=== PATIENT | male | born 1960 | race Caucasian/White ===

== ENCOUNTER 2017-03-27 17:24 | Observation (INO) ==
[2017-03-27] MEDS ORDERED: 0.9 % Sodium Chloride 1,000 ML IVC ONE ×2 (19:24→20:39)
--- NOTE | 2017-03-27 19:28 | Emergency Department Note ---
Disposition Clinical Impression: HHNC (hyperglycemic hyperosmolar nonketotic coma) Disposition: Admitted As Inpatient Condition: Good Referrals: Emily Amaro MD [Primary Care Provider] - Forms: ED Satisfaction Letter Time of Disposition: 20:49 General Adult HPI - General Chief complaint: ED Dizziness Stated complaint: High B/G, blurred vision,bad taste in mouth Time Seen by Provider: 03/27/17 19:07 Source: patient, family Limitations: no limitations Nursing Notes Reviewed: Yes Vital Signs Reviewed: Yes - History of Present Illness HPI Narrative: History of present illness: 56-year-old male presents with his significant other for blurry vision headache and hot taste in mouth. Patient recently diagnosed with diabetes [id number] this a few months ago. States she has been thirsty with polyuria and polydipsia. Says he has blurry vision. That is binocular. He has mild headache but no photophobia or neck stiffness. No fever or chills. No nausea or vomiting. No diarrhea. No chest pain or shortness of breath. Patient is noncompliant with some of his medications. Patient is awake and alert with trial mucosa here for further evaluation but in no apparent distress Pain Scale: 0 - Related Data Home Medications Medication Instructions Recorded Confirmed Aspirin [Adult Low Dose Aspirin EC] 81 mg PO DAILY 09/30/15 03/27/17 Cholecalciferol (D-3) [Vitamin D] 4,000 unit PO DAILY 09/30/15 03/27/17 Lisinopril-HCTZ 20-12.5 [Prinzide 1 each PO DAILY 09/30/15 03/27/17 20-12.5] Loratadine [Claritin] 10 mg PO DAILY 09/30/15 03/27/17 Albuterol Sulfate [Albuterol 2 puff IH Q4H PRN 06/26/16 03/27/17 Inhaler] Budesonide/Formoterol 160/4.5 2 puff IH BIDR 03/27/17 03/27/17 [Symbicort 160/4.5] Cyclobenzaprine [Flexeril] 10 mg PO HS 03/27/17 03/27/17 Furosemide [Lasix] 20 mg PO DAILY 03/27/17 03/27/17 GlipiZIDE [Glipizide Xl] 5 mg PO DAILY 03/27/17 03/27/17 Pravastatin Sodium [Pravachol] 20 mg PO HS 03/27/17 03/27/17 Allergies Allergy/AdvReac Type Severity Reaction Status Date / Time ceftriaxone [From Rocephin] AdvReac Severe See Verified 03/27/17 17:30 Comments All systems ED: reviewed and negative except as stated. Gastrointestinal: Reports: nausea Neurological: Reports: headache Endocrine: Reports: fatigue, polydipsia, polyuria Past Medical History - Past Medical History Attestation: Yes The following information was validated with the patient. Source: patient Medical history: Reports: CHF, COPD, coronary artery disease, diabetes, hypertension, myocardial infarction, renal disease Surgical history: Reports: appendectomy, herniorrhaphy Psychiatric history: Reports: no psych history - Social History Smoking Status: Former smoker Smokeless Tobacco Status: No Alcohol use: Reports: none Drug use: Reports: none Physical Exam - General Limitations: no limitations General appearance: alert, in no apparent distress - Head Head exam: atraumatic, normocephalic - Eye Eye exam: Present: normal appearance, PERRL, EOMI - ENT ENT exam: normal oropharynx, mucous membranes dry - Neck Neck exam: Present: normal inspection, full ROM - Chest Chest inspection: Present: normal inspection, symmetric chest wall rise - Respiratory Respiratory exam: Present: normal lung sounds bilaterally - Cardiovascular Cardiovascular exam: Present: regular rate, normal rhythm - Abdominal Exam Abdominal exam: Present: soft, Non-Tender - Extremities Exam Extremities exam: Present: normal inspection, pedal edema - Expanded Lower Extremity Exam Neurovascular/Tendon exam: Present: normal capillary refill Gait: observed and normal - Back Exam Back exam: Present: normal inspection - Neurological Exam Neurological exam: Present: alert, oriented X3, CN II-XII intact - Psychiatric Psychiatric exam: Present: normal affect, normal mood - Skin Skin exam: Present: warm, dry, intact Course - Reevaluation(s) Reevaluation #1: Patient will be worked up for hyperglycemia and DKA. Will be given 1 L normal saline troponin screening labs and an EKG with urinalysis. Disposition pending. Time: 19:28 Reevaluation #2: Patient's ED workup is nearing completion. Critical elevated glucose at over 750. Elevations and beta hydroxybutyrate. However no increased anion gap. In his VBG was borderline normal. Patient has hyperglycemic nonketotic state. With dehydration. Patient will be getting 2 L normal saline bolus. We will replace for admission awaiting hospitalist call back. Patient and family members so informed. Patient comfortable with this plan. Provided 40 minutes of critical care services for this patient. Time: 20:48 Reevaluation #3: Discussed the case with the hospitalist Dr. CARUSO, patient accepted for admission in stable condition Time: 20:59 Vital Signs Temperature 97.7 F 03/27/17 17:26 Pulse Rate 84 03/27/17 17:26 Respiratory Rate 18 03/27/17 17:26 Blood Pressure 124/78 03/27/17 17:26 O2 Sat by Pulse Oximetry 93 03/27/17 17:26 Temperature 97.7 F 03/27/17 17:26 Pulse Rate 84 03/27/17 17:26 Respiratory Rate 18 03/27/17 17:26 Blood Pressure 124/78 03/27/17 17:26 O2 Sat by Pulse Oximetry 93 03/27/17 17:26 Oxygen Delivery Oxygen Delivery Room Air Medical Decision Making - Medical Records Medical records reviewed: Yes I reviewed the patient's medical records. - Lab Data Lab results reviewed: Yes I reviewed the patient's lab results. Result diagrams: 03/27/17 19:58 03/27/17 19:58 Lab Results 03/27/17 03/27/17 03/27/17 Range/Units 17:28 19:58 19:58 WBC 8.2 (4.3-11.1) K/mcL RBC 4.92 (4.19-5.50) M/mcL Hgb 15.3 (12.9-16.9) g/dL Hct 45.7 (37.5-50.1) % MCV 92.9 (83.0-100.0) fL MCH 31.1 (28.0-33.3) pg MCHC 33.5 (31.6-35.5) g/dL RDW 13.3 (11.5-14.5) % Plt Count 136 L (140-400) K/mcL MPV 12.6 H (9.4-12.4) fL Immature Gran % 0.5 (0-4) % Seg Neutrophils % 61.1 % Lymphocytes % 29.2 % Monocytes % 8.1 % Eosinophils % 0.5 % Basophils % 0.6 % Neutrophils # 5.0 (1.6-8.9) K/mcL Lymphocytes # 2.4 (0.6-4.6) K/mcL Monocytes # 0.7 (0.0-1.3) K/mcL Eosinophils # 0.0 (0.0-0.6) K/mcL Basophils # 0.1 (0.0-0.2) K/mcL VBG pH (7.32-7.42) pH Units VBG pCO2 (41-51) mmHg VBG pO2 (25-40) mmHg VBG HCO3 (21-27) mEq/L Sodium 123 L (136-145) mEq/L Potassium 5.3 H (3.5-4.5) mEq/L Chloride 87 L (98-109) mEq/L Carbon Dioxide 27 (19-29) mEq/L BUN 31 H (8-26) mg/dL Creatinine 1.81 H (0.72-1.25) mg/dL Est GFR ( Amer) 47 L (> 60) Est GFR (Non-Af Amer) 39 L (> 60) BUN/Creatinine Ratio 17 (6-26) Glucose 762 H* (70-99) mg/dL POC Glucose > 600 H* (58-89) Calculated Osmolality 299 (280-300) Calcium 8.6 (8.6-10.8) mg/dL Troponin I (0-0.03) ng/mL Beta-Hydroxybutyric Acd 0.44 H (0.02-0.27) mmol/L 03/27/17 03/27/17 Range/Units 19:58 19:58 WBC (4.3-11.1) K/mcL RBC (4.19-5.50) M/mcL Hgb (12.9-16.9) g/dL Hct (37.5-50.1) % MCV (83.0-100.0) fL MCH (28.0-33.3) pg MCHC (31.6-35.5) g/dL RDW (11.5-14.5) % Plt Count (140-400) K/mcL MPV (9.4-12.4) fL Immature Gran % (0-4) % Seg Neutrophils % % Lymphocytes % % Monocytes % % Eosinophils % % Basophils % % Neutrophils # (1.6-8.9) K/mcL Lymphocytes # (0.6-4.6) K/mcL Monocytes # (0.0-1.3) K/mcL Eosinophils # (0.0-0.6) K/mcL Basophils # (0.0-0.2) K/mcL VBG pH 7.31 L (7.32-7.42) pH Units VBG pCO2 57 H (41-51) mmHg VBG pO2 39 (25-40) mmHg VBG HCO3 28.7 H (21-27) mEq/L Sodium (136-145) mEq/L Potassium (3.5-4.5) mEq/L Chloride (98-109) mEq/L Carbon Dioxide (19-29) mEq/L BUN (8-26) mg/dL Creatinine (0.72-1.25) mg/dL Est GFR ( Amer) (> 60) Est GFR (Non-Af Amer) (> 60) BUN/Creatinine Ratio (6-26) Glucose (70-99) mg/dL POC Glucose (58-89) Calculated Osmolality (280-300) Calcium (8.6-10.8) mg/dL Troponin I 0.01 (0-0.03) ng/mL Beta-Hydroxybutyric Acd (0.02-0.27) mmol/L - Radiology Data Radiology results reviewed: Yes I reviewed the patient's radiology results. - EKG Data EKG #1 EKG attestation: Yes I reviewed and interpreted this EKG. EKG results narrative: Twelve-lead EKG interpreted without cardiology shows:
[2017-03-27 20:20] LABS: VBG HCO3 28.7 mEq/L (21-27); VBG PH 7.31 pH Units (7.32-7.42)
[2017-03-27 20:24] LABS: Basophils # 0.1 K/mcL (0.0-0.2); Basophils % 0.6 %; Eosinophils % 0.5 %; Hematocrit 45.7 % (37.5-50.1); Hemoglobin 15.3 g/dL (12.9-16.9); Immature Granulocytes % 0.5 % (0-4); Lymphocytes # 2.4 K/mcL (0.6-4.6); Lymphocytes % 29.2 %; Mean Corpuscular HGB Conc 33.5 g/dL (31.6-35.5); Mean Corpuscular Hemoglobin 31.1 pg (28.0-33.3); Mean Corpuscular Volume 92.9 fL (83.0-100.0); Mean Platelet Volume 12.6 fL (9.4-12.4); Monocytes # 0.7 K/mcL (0.0-1.3); Monocytes % 8.1 %; Platelet Count 136 K/mcL (140-400); Red Blood Count 4.92 M/mcL (4.19-5.50); Red Cell Distribution Width 13.3 % (11.5-14.5); Segmented Neutrophils % 61.1 %
[2017-03-27 20:33] LABS: Calcium 8.6 mg/dL (8.6-10.8); Potassium 5.3 mEq/L (3.5-4.5)
[2017-03-27 20:43] LABS: Beta-Hydroxybutyric Acid 0.44 mmol/L (0.02-0.27)
[2017-03-27] MEDS ORDERED: Ondansetron 4 MG/2 ML VIAL IVP PRN (23:30)
[2017-03-27] MEDS ORDERED: *HR* Morphine 2 MG/ML SYRINGE IVP PRN (23:30)
[2017-03-27] MEDS ORDERED: Acetaminophen 325 MG TABLET PO PRN (23:30)
[2017-03-27] MEDS ORDERED: Naloxone 0.4 MG/ML INJ IVP PRN (23:30)
[2017-03-27] MEDS ORDERED: *HR* HYDROcodone/Acet 5/325 mg TABLET PO PRN (23:30)
[2017-03-27] MEDS ORDERED: Insulin Human Regular 8 UNIT in 0.9 % Sodium Chloride 10 ML IV ONE (23:41)
[2017-03-27] MEDS ORDERED: D5% in Water 1,000 ML IVC PRN (23:43)
[2017-03-27] MEDS ORDERED: Dextrose Gel 15 GM PO PRN ×2 (23:43)
[2017-03-27] MEDS ORDERED: *HR* Dextrose 50 % in Water (Syg) 50 ML SYRINGE IVP PRN (23:43)
--- NOTE | 2017-03-27 23:50 | Internal Med History&Physical ---
<Serge Payton - Last Filed: 03/28/17 00:42> Date of Encounter: 03/28/17 Time of Encounter: 23:00 Assessment and Plan (1) Acute hyperglycemia Current visit: Yes Status: Acute Patient presents with acute hyperglycemia due to being unable to have his medications over the past several weeks due to loss of his insurance. Upon admission to the ED, patient's blood glucose was 762. After 2L of NS, patient's glucose was 580. Will administer 8 units of IV insulin and medium dose correction insulin sliding scale with blood glucose monitoring ACHS. Diabetic diet ordered with fluid restriction of 1.5L daily due to CHF. (2) SOB (shortness of breath) Current visit: Yes Status: Acute Patient presents with acute but mild SOB for the past several weeks. Patient has history of CHF and COPD. Currently, patient has mild congestion related to his CHF and SOB he reports may be due to his chronic COPD. Will continue patient 's Lasix 20 mg daily. Supplemental O2 and continuous SpO2 monitoring ordered. BiPap ordered HS. Will monitor patient, vital signs, and respiratory status. (3) Generalized weakness Current visit: Yes Status: Acute Patient reports acute generalized weakness and fatigue over the past 3 weeks. This is most likely related to his hyperglycemia. Patient to be placed on falls precautions/up with assist/bedrest with bathroom privileges with assist only status due to generalized weakness. (4) GERD (gastroesophageal reflux disease) Current visit: Yes Status: Acute Patient presents with acute GERD and reports waking up at night with acid in his throat that makes him feel as though he's going to throw up. IV Protonix 40 mg daily ordered. IV Zofran ordered PRN for nausea. Qualifiers: Esophagitis presence: esophagitis presence not specified Qualified Code(s) : K21.9 - Gastro-esophageal reflux disease without esophagitis (5) Insurance coverage problems Current visit: Yes Status: Acute Patient presents with loss of insurance recently which has affected his ability to consistently take his prescribed medications and continue with his home O2 therapy. He states that he was approved for disability but will not be eligible for insurance coverage until November 2017. Patient's current admission is due to his inability to take his necessary medications to maintain his health. SW consult ordered to assess for available resources to help patient with possible insurance coverage, continuation of medications, and home O2/BiPap administration. (6) COPD (chronic obstructive pulmonary disease) Current visit: Yes Status: Chronic Patient presents with history of chronic COPD. Supplemental O2 ordered with titration if SPO2 less than 92% and continuous SPO2 monitoring. DuoNebs every 4 ordered. Qualifiers: COPD type: emphysema Qualified Code(s): J43.9 - Emphysema, unspecified (7) Sleep apnea Current visit: Yes Status: Chronic Patient reports history of sleep apnea requiring BiPap at night. Patient has been unable to use BiPap recently due to losing his insurance and having the machine taken away. Supplemental O2 ordered with SpO2 monitoring and BiPap HS. Qualifiers: Sleep apnea type: unspecified type Qualified Code(s): G47.30 - Sleep apnea , unspecified (8) Diabetes Current visit: Yes Status: Chronic Patient presents with chronic diabetes usually managed by oral hyperglycemic medications. However patient reports inability to take medications over the past few weeks due to losing his insurance. Blood glucose monitoring ACHS. IV insulin of 8 units to address current hyperglycemia. Patient to be placed on medium correction insulin dosing. Diabetic diet ordered with 1.5L fluid restriction. 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 Will continue patient's lisinopril and monitor patient's vital signs. Qualifiers: Hypertension type: essential hypertension Qualified Code(s): I10 - Essential (primary) hypertension (10) CHF (congestive heart failure) Current visit: Yes Status: Acute Patient presents with history of CHF. Currently, he has mild congestion and no pedal edema. Will continue patient's PO Lasix of 20 mg daily, monitor I&O and daily weight, and add fluid restriction of 1.5L daily to his ordered diabetic diet. Qualifiers: Congestive heart failure type: unspecified congestive heart failure type Qualified Code(s): I50.9 - Heart failure, unspecified (11) DVT prophylaxis Current visit: Yes Status: Acute Patient to be placed on DVT prophylaxis due to admission protocol and bed rest status. Pharmacologic DVT prophylaxis contraindicated due to patient's report of rectal bleeding over the past several weeks. SCDs ordered for the patient's LEs bilaterally. Internal Medicine - H&P: HPI Chief complaint: Hyperglycemic/blurry vision Admitted From: Emergency Dept Plans for Post Hospital Care: Home History of present illness: Mr. Em is a 56 year old male who presents from the ED with chief complaint of hyperglycemia and blurry vision over the past three weeks. He also reports generalized weakness. Patient reports that he has not felt well over the past three weeks and has not had all of his medications due to losing his insurance. He reports being extremely thirsty and urinating more than usual. He reports periods of blurry vision that he thinks is due to his blood sugar being so elevated. Patient states that he was diagnosed with diabetes in October 2016 and was taking oral hyperglycemic medications but no insulin. He also reports several episodes of passing large dark red clots with his stool over the last three weeks. He denies any current bleeding. He denies recent illness, fever, chills, nausea, vomiting, diarrhea, chest pain, or dyspnea. He reports some SOB due to his COPD. He also states that he is supposed to use BiPap at night but the machine was taken when he lost his insurance. Mr. Em has a history of CHF, COPD, CAD, diabetes, HTN, HLD, ND x2, and renal disease. He is currently not experiencing symptoms of CHF and has no pedal edema. Patient is at moderate risk for further morbidity due to his current hyperglycemia and being without his medications for the past several weeks consistently. He will be placed as observation status with 8 units of IV insulin, blood glucose monitoring ACHS, supplemental O2 with titration if SpO2 <92%, continuous SpO2 monitoring, fecal occult testing, A1C and lipid tests, and diabetic diet with fluid restriction of 1.5L daily. Patient to be placed on safety/falls precautions and monitored closely. Time spent with patient >40 minutes. Past Med Surg Social Fam HX - Past Medical History Source: patient Medical history: CHF, COPD, coronary artery disease, diabetes, hypertension, myocardial infarction, renal disease Psychiatric history: no psych history - Past Surgical History Surgical History: appendectomy, herniorrhaphy - Social History Smoking Status: Former smoker Packs per day: 2 PPD - Reports he quit several years ago Smokeless Tobacco Status: No Alcohol use: none Drug use: none Occupational status: previously employed Current living situation: Home, With Family Activity Level: Independent ambulation Recent Out of Country Travel Within the Last 8 Weeks: No Exposure or Possible Exposure to Illness During Travel: No - Family History Daughter Race: Family Member Ethnicity: Non- Living Status: Still Living Hx Family Cardiac Disorders: Yes (Hypertension) Mother Race: Family Member Ethnicity: Non- Living Status: Age at : 66 Cause of : Stroke Hx Family Cardiac Disorders: Yes (HD, Stroke) Hx Family Endocrine Disorder: Yes (DM) Father Race: Family Member Ethnicity: Non- Living Status: Age at : 83 Cause of : HD Hx Family Cardiac Disorders: Yes (HD, HTN) Brother Race: Family Member Ethnicity: Non- Living Status: Still Living Hx Family Cardiac Disorders: Yes (HTN) Hx Family Endocrine Disorder: Yes (DM) Sister Race: Family Member Ethnicity: Non- Living Status: Age at : 60 Cause of : Lung cancer Hx Family Cancer: Yes (Lung) Hx Family Endocrine Disorder: Yes (DM) Internal Medicine - H&P: Meds Aspirin [Adult Low Dose Aspirin EC] 81 mg PO DAILY 09/30/15 [History] Cholecalciferol (D-3) [Vitamin D] 4,000 unit PO DAILY 09/30/15 [History] Lisinopril-HCTZ 20-12.5 [Prinzide 20-12.5] 1 each PO DAILY 09/30/15 [History] Loratadine [Claritin] 10 mg PO DAILY 09/30/15 [History] Albuterol Sulfate [Albuterol Inhaler] 2 puff IH Q4H PRN 06/26/16 [History] Budesonide/Formoterol 160/4.5 [Symbicort 160/4.5] 2 puff IH BIDR 03/27/17 [ History] Cyclobenzaprine [Flexeril] 10 mg PO HS 03/27/17 [History] Furosemide [Lasix] 20 mg PO DAILY 03/27/17 [History] GlipiZIDE [Glipizide Xl] 5 mg PO DAILY 03/27/17 [History] Pravastatin Sodium [Pravachol] 20 mg PO HS 03/27/17 [History] Allergies ceftriaxone [From Rocephin] Adverse Reaction (Severe, Verified 03/27/17 17:30) See Comments All Systems PM: A 10-system review of systems was performed and is negative for pertinent findings except as documented above in the HPI. - Constitutional Constitutional: as per HPI, weakness, no chills, no fever(s), no night sweats - EENT Eyes: as per HPI, blurry vision Ears: no ear discharge, no ear pain, no tinnitus Nose, mouth and throat: no dysphagia, no nasal discharge, no neck pain, no sore throat - Breasts Breasts: as per HPI - Cardiovascular Cardiovascular ROS IM: no chest pain, no diaphoresis, no dyspnea, no lightheadedness, no palpitations, no syncope - Respiratory Respiratory: as per HPI, dyspnea (Related to his COPD) - Gastrointestinal Gastrointestinal: as per HPI, dyspepsia, hematochezia - Genitourinary Genitourinary ROS male: as per HPI - Musculoskeletal Musculoskeletal ROS IM: no numbness, no tingling - Integumentary Integumentary IM: no rash, no unusual bruising - Neurological Neurological ROS: no confusion, no convulsions, no focal weakness, no numbness, no tingling, no tremor(s) - Psychiatric Psychiatric: as per HPI - Endocrine Endocrine IM: as per HPI - Hematologic/Lymphatic Hematologic/Lymphatic: as per HPI, other (Blood clots in stool several times in last three weeks) - Allergic/Immunologic Allergic/Immunologic: as per HPI - Constitutional Vitals: Temp Pulse Resp BP Pulse Ox 97.8 F 70 19 140/68 98 03/27/17 23:06 03/27/17 23:06 03/27/17 23:06 03/27/17 23:06 03/27/17 23:06 General appearance: Present: cooperative, A&O X 3, morbidly obese, pleasant, no acute distress, answers questions appropriately - Head Head exam: Present: atraumatic, normocephalic - Eye Eye exam: Present: PERRL, conjuntiva pink, sclera anicteric Pupils: Present: PERRL - ENT ENT exam: Present: normal exam, normal external ear exam - Neck Neck exam general surgery: Present: normal inspection, supple, trachea midline. Absent: lymphadenopathy - Respiratory Respiratory exam: Present: CTAB. Absent: accessory muscle use, rales, rhonchi, wheezes - Cardiovascular Cardiovascular exam: Present: RRR, +S1, +S2. Absent: diastolic murmur, gallop, rubs, systolic murmur - GI/Abdominal GI/Abdominal exam: Present: normal bowel sounds, soft, no peritoneal signs. Absent: distended, tenderness - Rectal Rectal exam: Present: deferred - Additional comments: exam deferred. - Extremities Exam Extremities exam: Present: warm, radial pulses palpable and symetrical. Absent : calf tenderness, cyanotic, pedal edema - Back Exam Back exam: Present: normal inspection - Neurological Exam Neurological exam: Present: CN II-XII intact, oriented X3, no focal deficits. Absent: pronater drift, facial droop, speech deficit - Psychiatric Psychiatric exam: Present: normal affect, normal mood - Skin Skin exam: Present: dry, intact Internal Med - H&P Results - Labs CBC & Chem 7: 03/27/17 19:58 03/27/17 19:58 <Jazzmine Luong - Last Filed: 03/28/17 02:57> Date of Encounter: 03/28/17 Internal Medicine - H&P: HPI History of present illness: Mr. Em is a 56 year old male All Systems PM: A 10-system review of systems was performed and is negative for pertinent findings except as documented above in the HPI. - Constitutional Vitals: Temp Pulse Resp BP Pulse Ox 97.8 F 70 19 140/68 98 03/27/17 23:06 03/27/17 23:06 03/27/17 23:06 03/27/17 23:06 03/27/17 23:06 Internal Med - H&P Results - Labs CBC & Chem 7: 03/27/17 19:58 03/27/17 19:58 - Impressions ITS Impressions Chest X-Ray 03/28/17 00:12 IMPRESSION: Pulmonary vascular congestion. Otherwise no acute abnormality detected. D/ / Savage Plummer MD / Savage Plummer MD Interpreting Provider: Savage Plummer MD - Attending Attestation I examined this patient and my medical decision-making was reviewed with the Advanced Practice Nurse. I agree with the documented findings, disposition and treatment plan as described except to the extent set forth below. 56 y/o man presenting with hyperglycemia due to not being able to take his meds from losing his insurance, NO signs DKA at this time, although fsg noted to be >600 at presentation. mental status intact, c/o fatigue and lethargy. he got 2l of bolus at ED, CXR shows mild vascular congestion. given h/o CHF with preserved EF, will avoid IVF at this time, 8 units IV insulin stat and will do medium dose sliding scale for now. also has hyponatremia but if corrected for blood sugar, its better. if fsg still high, may have to start on insulin drip
[2017-03-28] MEDS: Pantoprazole 40 MG VIAL IVP SCH ×2 (00:58→09:02)
[2017-03-28 03:03] LABS: Bilirubin,Urine Negative (Negative); Blood,Urine Negative (Negative); Clarity,Urine Clear (Clear); Color,Urine Yellow (Yellow); Glucose,Urine (UA) >=1000 mg/dL (Normal); Ketones,Urine Negative (Negative); Leukocyte Esterase,Urine Negative (Negative); Nitrite,Urine Negative (Negative); Protein,Urine Negative (Neg-Trace); Specific Gravity,Urine > 1.030 (1.010-1.025); Urobilinogen,Urine Normal (Normal)
[2017-03-28] MEDS: Ipratropium/Albuterol Neb 3 ML IH SCH ×7 (03:07→23:27)
[2017-03-28] MEDS ORDERED: Insulin LISPRO 300 UNITS/3 ML VIAL SQ ONE (03:16)
[2017-03-28 05:39] LABS: Basophils # 0.1 K/mcL (0.0-0.2); Basophils % 0.6 %; Eosinophils # 0.1 K/mcL (0.0-0.6); Eosinophils % 1.2 %; Hematocrit 43.3 % (37.5-50.1); Hemoglobin 14.7 g/dL (12.9-16.9); Immature Granulocytes % 0.4 % (0-4); Lymphocytes % 38.5 %; Mean Corpuscular HGB Conc 33.9 g/dL (31.6-35.5); Mean Corpuscular Hemoglobin 31.5 pg (28.0-33.3); Mean Corpuscular Volume 92.7 fL (83.0-100.0); Mean Platelet Volume 12.5 fL (9.4-12.4); Monocytes # 0.7 K/mcL (0.0-1.3); Monocytes % 8.6 %; Platelet Count 121 K/mcL (140-400); Red Blood Count 4.67 M/mcL (4.19-5.50); Red Cell Distribution Width 13.6 % (11.5-14.5); Segmented Neutrophils % 50.7 %
[2017-03-28 05:43] LABS: Prothrombin Time 10.5 Seconds (9.4-12.1)
[2017-03-28 05:45] LABS: Activated Partial Thrombo Time 26.5 Seconds (26.0-36.0)
[2017-03-28 05:47] LABS: Estimated Average Glucose > 355 mg/dl; Hemoglobin A1C >= 14.1 %
[2017-03-28 05:56] LABS: BUN/Creatinine Ratio 15 (6-26); Blood Urea Nitrogen 26 mg/dL (8-26); Calcium 8.7 mg/dL (8.6-10.8); Carbon Dioxide 26 mEq/L (19-29); Chloride 97 mEq/L (98-109); Chol/HDL Ratio 8.1 (0-4.9); Cholesterol 186 mg/dL (< 200); HDL Cholesterol 23 mg/dL (40-59); Magnesium 1.8 mg/dL (1.6-2.6); Osmolality,Calculated 299 (280-300); Potassium 4.7 mEq/L (3.5-4.5); Triglycerides 1003 mg/dL (< 150); eGFR For African Americans 51 (> 60); eGFR For Non-African Americans 42 (> 60)
[2017-03-28 05:58] LABS: Sodium 130 mEq/L (136-145)
[2017-03-28 06:05] LABS: Glucose 530 mg/dL (70-99)
[2017-03-28] MEDS ORDERED: *HR* Dextrose 50 % in Water (Syg) 50 ML SYRINGE IVP PRN (06:36)
[2017-03-28] MEDS ORDERED: Insulin Human Regular 100 UNIT in 0.9 % Sodium Chloride 100 ML IVC SCH (06:45)
[2017-03-28] MEDS ORDERED: 0.9 % Sodium Chloride 500 ML ONE (07:29)
[2017-03-28] MEDS ORDERED: Insulin LISPRO 300 UNITS/3 ML VIAL SQ SCH ×2 (07:30→21:00)
[2017-03-28] MEDS ORDERED: Furosemide 20 MG TABLET PO SCH (09:00)
[2017-03-28] MEDS: Loratadine 10 MG TABLET PO SCH (09:02)
[2017-03-28] MEDS: Cholecalciferol (D-3) 1,000 UNIT TABLET PO SCH (09:02)
[2017-03-28] MEDS: Lisinopril-HCTZ 20-12.5mg TABLET PO SCH (09:02)
[2017-03-28] MEDS: Aspirin Enteric Coated 81 MG Tablet PO SCH (09:02)
--- NOTE | 2017-03-28 12:51 | Internal Med Progress Note ---
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 (2) Hypertension Current Visit: Yes Status: Chronic Assessment and plan: Stable Qualifiers: Hypertension type: essential hypertension Qualified Code(s): I10 - Essential (primary) hypertension (3) KATHY (obstructive sleep apnea) Current Visit: No Status: Chronic (4) COPD (chronic obstructive pulmonary disease) Current Visit: Yes Status: Chronic Qualifiers: COPD type: emphysema Qualified Code(s): J43.9 - Emphysema, unspecified (5) GERD (gastroesophageal reflux disease) Current Visit: Yes Status: Acute Assessment and plan: On Protonix, may switch to omeprazole Qualifiers: Esophagitis presence: esophagitis presence not specified Qualified Code(s) : K21.9 - Gastro-esophageal reflux disease without esophagitis (6) CHF (congestive heart failure) Current Visit: Yes Status: Acute Assessment and plan: Chest x-ray shows pulmonary vascular congestion He is euvolemic at the moment Consider either using some Lasix as the patient needs fluid at the moment If he becomes overloaded, we will discontinue fluids, insulin drip and start subcutaneous insulin at a larger dose Qualifiers: Congestive heart failure type: diastolic Congestive heart failure chronicity: unspecified congestive heart failure chronicity Qualified Code(s) : I50.30 - Unspecified diastolic (congestive) heart failure (7) Insurance coverage problems Current Visit: Yes Status: Acute (8) Obesities, morbid Current Visit: No Status: Chronic (9) Hyponatremia Current Visit: Yes Status: Acute Assessment and plan: Pseudohyponatremia, his calculated/corrected sodium at the moment is 137 Discontinue fluid restriction - Subjective Interval history: Denies any chest pain, shortness of breath, no abdominal pain, no dysuria, no diarrhea. No fevers or cough, no headaches. Was feeling very dizzy over the past few days - Constitutional Vitals: Temp Pulse Resp BP Pulse Ox 98.2 F 58 16 109/58 92 03/28/17 11:02 03/28/17 11:02 03/28/17 10:22 03/28/17 11:02 03/28/17 11:02 General appearance: Present: cooperative, A&O X 3, morbidly obese, pleasant, no acute distress, answers questions appropriately - Head Head exam: Present: atraumatic, normocephalic - Eye Eye exam: Present: PERRL, conjuntiva pink, sclera anicteric Pupils: Present: PERRL - Neck Neck exam general surgery: Present: supple, trachea midline. Absent: lymphadenopathy - Respiratory Respiratory exam: Present: CTAB. Absent: accessory muscle use, rales, rhonchi, wheezes - Cardiovascular Cardiovascular exam: Present: RRR, +S1, +S2. Absent: diastolic murmur, gallop, rubs, systolic murmur - GI/Abdominal GI/Abdominal exam: Present: normal bowel sounds, soft, no peritoneal signs. Absent: distended, tenderness - Extremities Exam Extremities exam: Present: warm, radial pulses palpable and symetrical. Absent : calf tenderness, cyanotic, pedal edema - Neurological Exam Neurological exam: Present: CN II-XII intact, oriented X3, no focal deficits. Absent: pronater drift, facial droop, speech deficit - Skin Skin exam: Present: dry, intact Internal Medicine: Result - Labs CBC & Chem 7: 03/28/17 04:49 03/28/17 04:49 Labs: Short CBC 03/28/17 Range/Units 04:49 WBC 7.8 (4.3-11.1) K/mcL Hgb 14.7 (12.9-16.9) g/dL Hct 43.3 (37.5-50.1) % Plt Count 121 L (140-400) K/mcL Neutrophils # 4.0 (1.6-8.9) K/mcL BMP 03/28/17 04:49 Sodium 130 L D Potassium 4.7 H Chloride 97 L Carbon Dioxide 26 BUN 26 Creatinine 1.68 H Glucose 530 H* Calcium 8.7 Urine 03/28/17 Range/Units 02:50 Urine Color Yellow (Yellow) Urine Clarity Clear (Clear) Urine pH 6.0 (5.0-8.0) pH Units Ur Specific [place] > 1.030 H (1.010-1.025) Urine Protein Negative (Neg-Trace) mg/dL Urine Glucose (UA) >=1000 H (Normal) mg/dL - ABG Interpretation ABG results: PT/INR, D-dimer PT 10.5 Seconds (9.4-12.1) 03/28/17 04:49 - Impressions Impressions Chest X-Ray 03/28/17 00:12 IMPRESSION: Pulmonary vascular congestion. Otherwise no acute abnormality detected. D/ / Savage Plummer MD / Savage Plummer MD Interpreting Provider: Savage Plummer MD Consult Discharge Plan - Plan Referrals: Emily Amaro MD [Primary Care Provider] -
[2017-03-28] MEDS: D5% in 0.45% NACL w KCl 10 MEQ/1,000 ML MLS IVC SCH ×2 (13:17→20:24)
[2017-03-28] MEDS: Fenofibrate 54 MG TABLET PO SCH (13:18)
[2017-03-28] MEDS: Insulin Human Regular 100 UNIT in 0.9 % Sodium Chloride 100 ML IVC SCH (15:14)
[2017-03-29] MEDS: D5% in 0.45% NACL w KCl 10 MEQ/1,000 ML MLS IVC SCH (03:20)
[2017-03-29] MEDS: Ipratropium/Albuterol Neb 3 ML IH SCH ×6 (04:18→23:27)
[2017-03-29] MEDS: Insulin Human Regular 100 UNIT in 0.9 % Sodium Chloride 100 ML IVC SCH (05:14)
[2017-03-29 05:35] LABS: Hematocrit 42.6 % (37.5-50.1); Hemoglobin 13.5 g/dL (12.9-16.9); Mean Corpuscular HGB Conc 31.7 g/dL (31.6-35.5); Mean Corpuscular Hemoglobin 30.5 pg (28.0-33.3); Mean Corpuscular Volume 96.2 fL (83.0-100.0); Mean Platelet Volume 12.3 fL (9.4-12.4); Platelet Count 119 K/mcL (140-400); Red Blood Count 4.43 M/mcL (4.19-5.50); Red Cell Distribution Width 13.6 % (11.5-14.5)
[2017-03-29 06:01] LABS: BUN/Creatinine Ratio 16 (6-26); Blood Urea Nitrogen 21 mg/dL (8-26); Calcium 8.4 mg/dL (8.6-10.8); Carbon Dioxide 26 mEq/L (19-29); Chloride 103 mEq/L (98-109); Glucose 190 mg/dL (70-99); Osmolality,Calculated 288 (280-300); Potassium 4.4 mEq/L (3.5-4.5); Sodium 135 mEq/L (136-145); eGFR For African Americans > 60 (> 60); eGFR For Non-African Americans 54 (> 60)
[2017-03-29] MEDS ORDERED: Insulin LISPRO 300 UNITS/3 ML VIAL SQ SCH ×3 (08:15→21:00)
[2017-03-29] MEDS ORDERED: Insulin DETEMIR 100 UNIT/ML X5UNITS SQ SCH ×2 (09:00→21:00)
[2017-03-29] MEDS ORDERED: Furosemide 20 MG TABLET PO SCH (09:20)
--- NOTE | 2017-03-29 09:20 | Internal Med Progress Note ---
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 (2) Hypertension Current Visit: Yes Status: Chronic Assessment and plan: Stable Qualifiers: Hypertension type: essential hypertension Qualified Code(s): I10 - Essential (primary) hypertension (3) KATHY (obstructive sleep apnea) Current Visit: No Status: Chronic (4) COPD (chronic obstructive pulmonary disease) Current Visit: Yes Status: Chronic Qualifiers: COPD type: emphysema Qualified Code(s): J43.9 - Emphysema, unspecified (5) GERD (gastroesophageal reflux disease) Current Visit: Yes Status: Acute Assessment and plan: On Protonix, may switch to omeprazole Qualifiers: Esophagitis presence: esophagitis presence not specified Qualified Code(s) : K21.9 - Gastro-esophageal reflux disease without esophagitis (6) CHF (congestive heart failure) Current Visit: Yes Status: Acute Assessment and plan: Chest x-ray showed pulmonary vascular congestion Oxygen will be provided at home, is supposed to use 2 L continuously Increase Lasix to 40 mg daily Qualifiers: Congestive heart failure type: diastolic Congestive heart failure chronicity: unspecified congestive heart failure chronicity Qualified Code(s) : I50.30 - Unspecified diastolic (congestive) heart failure (7) Insurance coverage problems Current Visit: Yes Status: Acute (8) Obesities, morbid Current Visit: No Status: Chronic (9) Hyponatremia Current Visit: Yes Status: Acute Assessment and plan: Pseudohyponatremia, his calculated/corrected sodium at the moment is 137 Discontinue fluid restriction - Subjective Interval history: Denies any chest pain, denies any shortness of breath, no abdominal pain, no dysuria, no diarrhea. No fevers or cough, no headaches. Was feeling very dizzy over the past few days prior to his admission - Constitutional Vitals: Temp Pulse Resp BP Pulse Ox 97.6 F 48 18 114/50 92 03/29/17 07:12 03/29/17 07:12 03/29/17 07:47 03/29/17 07:12 03/29/17 07:47 General appearance: Present: cooperative, A&O X 3, morbidly obese, pleasant, no acute distress, answers questions appropriately - Head Head exam: Present: atraumatic, normocephalic - Eye Eye exam: Present: PERRL, conjuntiva pink, sclera anicteric Pupils: Present: PERRL - Neck Neck exam general surgery: Present: supple, trachea midline. Absent: lymphadenopathy - Respiratory Respiratory exam: Present: decreased breath sounds, CTAB. Absent: accessory muscle use, rales, rhonchi, wheezes - Cardiovascular Cardiovascular exam: Present: RRR, +S1, +S2. Absent: diastolic murmur, gallop, rubs, systolic murmur - GI/Abdominal GI/Abdominal exam: Present: normal bowel sounds, soft, no peritoneal signs. Absent: distended, tenderness - Extremities Exam Extremities exam: Present: warm, radial pulses palpable and symetrical. Absent : calf tenderness, cyanotic, pedal edema - Neurological Exam Neurological exam: Present: CN II-XII intact, oriented X3, no focal deficits. Absent: pronater drift, facial droop, speech deficit - Skin Skin exam: Present: dry, intact Internal Medicine: Result - Labs CBC & Chem 7: 03/29/17 04:59 03/29/17 04:59 Labs: Short CBC 03/29/17 Range/Units 04:59 WBC 7.5 (4.3-11.1) K/mcL Hgb 13.5 (12.9-16.9) g/dL Hct 42.6 (37.5-50.1) % Plt Count 119 L (140-400) K/mcL [facility] 03/28/17 03/29/17 23:48 04:59 Sodium 135 L Potassium 4.4 4.4 Chloride 103 Carbon Dioxide 26 BUN 21 Creatinine 1.35 H Glucose 190 H Calcium 8.4 L - ABG Interpretation ABG results: PT/INR, D-dimer PT 10.5 Seconds (9.4-12.1) 03/28/17 04:49 Consult Discharge Plan - Plan Referrals: Emily Amaro MD [Primary Care Provider] -
[2017-03-29] MEDS: Aspirin Enteric Coated 81 MG Tablet PO SCH (09:21)
[2017-03-29] MEDS: Lisinopril-HCTZ 20-12.5mg TABLET PO SCH (09:21)
[2017-03-29] MEDS: Cholecalciferol (D-3) 1,000 UNIT TABLET PO SCH (09:22)
[2017-03-29] MEDS: Fenofibrate 54 MG TABLET PO SCH (09:22)
[2017-03-29] MEDS: Loratadine 10 MG TABLET PO SCH (09:22)
[2017-03-29] MEDS: Insulin LISPRO 300 UNITS/3 ML VIAL SQ SCH ×5 (09:22→16:55)
[2017-03-29] MEDS: *HR* GlipiZIDE XL (24 HR) 2.5 MG TABLET PO SCH (10:56)
[2017-03-29] MEDS: Furosemide 40 MG TABLET PO SCH (10:56)
[2017-03-29] MEDS ORDERED: FISH OIL PO SCH (12:15)
[2017-03-29] MEDS ORDERED: Insulin LISPRO 300 UNITS/3 ML VIAL SQ ONE ×2 (12:16→14:08)
[2017-03-29] MEDS: FISH OIL 1000 MG PO SCH ×2 (12:47→20:53)
[2017-03-29] MEDS ORDERED: Insulin DETEMIR 100 UNIT/ML X5UNITS SQ ONE (14:07)
[2017-03-29] MEDS: Insulin DETEMIR 100 UNIT/ML X5UNITS SQ SCH (20:53)
[2017-03-30] MEDS: Ipratropium/Albuterol Neb 3 ML IH SCH ×3 (04:09→11:40)
--- NOTE | 2017-03-30 08:18 | Discharge Summary ---
Date of Encounter: 03/30/17 Time of Encounter: 08:16 - Discharge Diagnosis (1) HHNC (hyperglycemic hyperosmolar nonketotic coma) Priority: Primary Status: Acute Comments: Secondary to noncompliance due to insurance problems (2) Hypertension Priority: Secondary Status: Chronic Qualifiers: Hypertension type: essential hypertension Qualified Code(s): I10 - Essential (primary) hypertension (3) KATHY (obstructive sleep apnea) Priority: Secondary Status: Chronic (4) COPD (chronic obstructive pulmonary disease) Priority: Secondary Status: Chronic Qualifiers: COPD type: emphysema Qualified Code(s): J43.9 - Emphysema, unspecified (5) GERD (gastroesophageal reflux disease) Priority: Secondary Status: Acute Qualifiers: Esophagitis presence: esophagitis presence not specified Qualified Code(s) : K21.9 - Gastro-esophageal reflux disease without esophagitis (6) CHF (congestive heart failure) Priority: Secondary Status: Acute Qualifiers: Congestive heart failure type: diastolic Congestive heart failure chronicity: unspecified congestive heart failure chronicity Qualified Code(s) : I50.30 - Unspecified diastolic (congestive) heart failure (7) Insurance coverage problems Priority: Secondary Status: Acute (8) Obesities, morbid Priority: Secondary Status: Chronic (9) Hyponatremia Priority: Secondary Status: Acute (10) Neuropathy Priority: Secondary Status: Acute Comments: Secondary to diabetes Start gabapentin (11) Hypertriglyceridemia Priority: Secondary Status: Acute Comments: Severe hypertriglyceridemia Start Fish oil and fenofibrate - Discharge Medications Prescriptions: Albuterol Sulfate [Albuterol Inhaler] 2 puff IH Q4H PRN 30 Days PRN Reason: Shortness Of Breath Budesonide/Formoterol 160/4.5 [Symbicort 160/4.5] 2 puff IH BIDR 30 Days Fenofibrate [Tricor] 162 mg PO DAILY #30 tablet Furosemide [Lasix] 40 mg PO DAILY #30 tablet Gabapentin [Neurontin] 300 mg PO TID #90 capsule GlipiZIDE [Glipizide Xl] 5 mg PO DAILY #30 tab.er.24 Insulin DETEMIR [Levemir] 25 unit SQ BID 30 Days Insulin LISPRO [HumaLOG] 15 units SQ TIDAC 30 Days Lisinopril [Zestril] 20 mg PO DAILY #30 tablet Omeprazole [PriLOSEC] 40 mg PO DAILY #30 cap Pravastatin Sodium [Pravachol] 40 mg PO HS #30 tablet Home Medications: Aspirin [Adult Low Dose Aspirin EC] 81 mg PO DAILY 09/30/15 [History] Cholecalciferol (D-3) [Vitamin D] 4,000 unit PO DAILY 09/30/15 [History] Loratadine [Claritin] 10 mg PO DAILY 09/30/15 [History] Cyclobenzaprine [Flexeril] 10 mg PO HS 03/27/17 [History] Albuterol Sulfate [Albuterol Inhaler] 2 puff IH Q4H PRN 30 Days 03/30/17 [Rx] Budesonide/Formoterol 160/4.5 [Symbicort 160/4.5] 2 puff IH BIDR 30 Days [Rx] Fenofibrate [Tricor] 162 mg PO DAILY #30 tablet 03/30/17 [Rx] Furosemide [Lasix] 40 mg PO DAILY #30 tablet 03/30/17 [Rx] Gabapentin [Neurontin] 300 mg PO TID #90 capsule 03/30/17 [Rx] GlipiZIDE [Glipizide Xl] 5 mg PO DAILY #30 tab.er.24 03/30/17 [Rx] Insulin DETEMIR [Levemir] 25 unit SQ BID 30 Days 03/30/17 [Rx] Insulin LISPRO [HumaLOG] 15 units SQ TIDAC 30 Days 03/30/17 [Rx] Lisinopril [Zestril] 20 mg PO DAILY #30 tablet 03/30/17 [Rx] Omeprazole [PriLOSEC] 40 mg PO DAILY #30 cap 03/30/17 [Rx] Pravastatin Sodium [Pravachol] 40 mg PO HS #30 tablet 03/30/17 [Rx] Allergies/Adverse Reactions: Allergies ceftriaxone [From Rocephin] Adverse Reaction (Severe, Verified 03/27/17 17:30) See Comments Date of admission: 03/27/17 21:47 Primary care physician: Emily Amaro Consults: 03/27/17 23:33 Consult to Partner Management Consultant [CONS] Routine Reason for SW Consult: Patient lost their kwiry insurance and he takes 13 prescriptions and needs help with finding out what is available for meds, home O2, etc. - Patient Status Disposition: Home, Self-Care Condition: Good Overall status at discharge: patient is progressing back to baseline - Discharge Instructions Follow Up With: Emily Amaro MD [Primary Care Provider] - Additional Instructions: Follow-up with the primary care physician within the next 7 days. Be compliant with insulin and measure your glucose once daily. Continue diabetic diet. Continue fish oil and fenofibrate. Follow-up with GI within the next week to possibly schedule a colonoscopy, continue omeprazole. Continue glipizide - Diet and Activity Activity: wear oxygen at all times Diet: diabetic diet Hospital course: Mr. Em is a 56 year old male with a past medical history of diastolic CHF, COPD oxygen dependent, CAD, diabetes type 2 insulin-dependent, hypertension, myocardial infarction, chronic kidney disease stage 3/4 who presented from the ED with chief complaint of hyperglycemia and blurry vision over the past three weeks prior to admission. He also reported generalized weakness. He reported being extremely thirsty and urinating more than usual. Patient states that he was diagnosed with diabetes in October 2016 and was taking oral hyperglycemic medications but no insulin. The patient's glucose was found to be 762, she was started on an insulin drip. Currently he is on a Levemir 25 units twice a day and lispro 15 units 3 times a day. Glipizide will be continued. His hemoglobin A1c is 14.1. Upon admission his sodium was 123 but most likely these was [id number], his latest sodium is 135. His creatinine has improved from 1.81 down to 1.35. Patient complained of being short of breath and a chest x-ray showed vascular congestion , his Lasix was increased up to 40 mg daily. Patient also started complaining of neuropathic pain in both lower extremities and was started on gabapentin. She said that he was not able to get his medications due to insurance problems since he was placed on disability. Requires oxygen that needs to be provided. Triglycerides were found to be 1003, he was started on fenofibrate and fish oil. - Time Spent with Patient Total time spent providing and/or coordinating discharge services: Greater than 30 minutes (40 minutes) - Constitutional Vitals: Temp Pulse Resp BP Pulse Ox 98.0 F 42 16 124/73 94 03/30/17 06:48 03/30/17 06:48 03/30/17 07:51 03/30/17 06:48 03/30/17 07:51 General appearance: Present: cooperative, A&O X 3, morbidly obese, pleasant, no acute distress, answers questions appropriately - Head Head exam: Present: atraumatic, normocephalic - Eye Eye exam: Present: PERRL, conjuntiva pink, sclera anicteric Pupils: Present: PERRL - Neck Neck exam general surgery: Present: supple, trachea midline. Absent: lymphadenopathy - Respiratory Respiratory exam: Present: CTAB. Absent: accessory muscle use, rales, rhonchi, wheezes - Cardiovascular Cardiovascular exam: Present: RRR, +S1, +S2. Absent: diastolic murmur, gallop, rubs, systolic murmur - GI/Abdominal GI/Abdominal exam: Present: distended, normal bowel sounds, soft, no peritoneal signs. Absent: tenderness - Extremities Exam Extremities exam: Present: warm, radial pulses palpable and symetrical. Absent : calf tenderness, cyanotic, pedal edema - Neurological Exam Neurological exam: Present: CN II-XII intact, oriented X3, no focal deficits. Absent: pronater drift, facial droop, speech deficit - Skin Skin exam: Present: dry, intact
--- NOTE | 2017-03-30 08:38 | Physician Discharge Referral ---
Home Health/Hosp Referral Info Transfer to: Home Health Provider in Charge Post Discharge: PCP - Diagnosis (1) HHNC (hyperglycemic hyperosmolar nonketotic coma) Status: Acute (2) Hypertension Status: Chronic (3) KATHY (obstructive sleep apnea) Status: Chronic (4) COPD (chronic obstructive pulmonary disease) Status: Chronic (5) GERD (gastroesophageal reflux disease) Status: Acute (6) CHF (congestive heart failure) Status: Acute (7) Insurance coverage problems Status: Acute (8) Obesities, morbid Status: Chronic (9) Hyponatremia Status: Acute (10) Neuropathy Status: Acute (11) Hypertriglyceridemia Status: Acute - Respiratory Orders Oxygen / L per min (2 L continuously) Smoking Cessation: Smoking cessation has been advised. For more information, call the [employer] Tobacco Quit Line at 2-656-HMVL-NOW. - Diet/Nutrition Diet/Nutrition: List: Diabetic diet and 1800 kcal - Services Needed Following services are medically necessary services: Home Health Aide, Physical Therapy Home Care Orders: Follow-up with the primary care physician within the next 7 days. Be compliant with insulin and measure your glucose once daily. Continue diabetic diet. Continue fish oil and fenofibrate. Follow-up with GI within the next week to possibly schedule a colonoscopy, continue omeprazole. Continue glipizide - Transfer Medications Prescriptions: Albuterol Sulfate [Albuterol Inhaler] 2 puff IH Q4H PRN 30 Days PRN Reason: Shortness Of Breath Budesonide/Formoterol 160/4.5 [Symbicort 160/4.5] 2 puff IH BIDR 30 Days Fenofibrate [Tricor] 162 mg PO DAILY #30 tablet Furosemide [Lasix] 40 mg PO DAILY #30 tablet Gabapentin [Neurontin] 300 mg PO TID #90 capsule GlipiZIDE [Glipizide Xl] 5 mg PO DAILY #30 tab.er.24 Insulin DETEMIR [Levemir] 25 unit SQ BID 30 Days Insulin LISPRO [HumaLOG] 15 units SQ TIDAC 30 Days Lisinopril [Zestril] 20 mg PO DAILY #30 tablet Omeprazole [PriLOSEC] 40 mg PO DAILY #30 cap Pravastatin Sodium [Pravachol] 40 mg PO HS #30 tablet Home Medications: Aspirin [Adult Low Dose Aspirin EC] 81 mg PO DAILY 09/30/15 [History] Cholecalciferol (D-3) [Vitamin D] 4,000 unit PO DAILY 09/30/15 [History] Loratadine [Claritin] 10 mg PO DAILY 09/30/15 [History] Cyclobenzaprine [Flexeril] 10 mg PO HS 03/27/17 [History] Albuterol Sulfate [Albuterol Inhaler] 2 puff IH Q4H PRN 30 Days 03/30/17 [Rx] Budesonide/Formoterol 160/4.5 [Symbicort 160/4.5] 2 puff IH BIDR 30 Days [Rx] Fenofibrate [Tricor] 162 mg PO DAILY #30 tablet 03/30/17 [Rx] Furosemide [Lasix] 40 mg PO DAILY #30 tablet 03/30/17 [Rx] Gabapentin [Neurontin] 300 mg PO TID #90 capsule 03/30/17 [Rx] GlipiZIDE [Glipizide Xl] 5 mg PO DAILY #30 tab.er.24 03/30/17 [Rx] Insulin DETEMIR [Levemir] 25 unit SQ BID 30 Days 03/30/17 [Rx] Insulin LISPRO [HumaLOG] 15 units SQ TIDAC 30 Days 03/30/17 [Rx] Lisinopril [Zestril] 20 mg PO DAILY #30 tablet 03/30/17 [Rx] Omeprazole [PriLOSEC] 40 mg PO DAILY #30 cap 03/30/17 [Rx] Pravastatin Sodium [Pravachol] 40 mg PO HS #30 tablet 03/30/17 [Rx] Allergies/Adverse Reactions: Allergies ceftriaxone [From Rocephin] Adverse Reaction (Severe, Verified 03/27/17 17:30) See Comments Certification: Further, I certify that my clinical findings support that this patient is homebound (i.e. absences from home require considerable and taxing effort and are for medical reasons or christian services or infrequently or short duration when for other reasons) because: Homebound Reason: Patient requires assistance of a person or device to safely leave home Attestation: My signature below is to certify that this patient is under my care and that I, or nurse practitioner, or a physician's practice assistant working with me, has a face-to -face encounter with this patient.
[2017-03-30] MEDS: Insulin LISPRO 300 UNITS/3 ML VIAL SQ SCH ×4 (08:43→12:01)
[2017-03-30] MEDS: FISH OIL 1000 MG PO SCH (08:45)
[2017-03-30] MEDS: Fenofibrate 54 MG TABLET PO SCH (08:45)
[2017-03-30] MEDS: Lisinopril-HCTZ 20-12.5mg TABLET PO SCH (08:45)
[2017-03-30] MEDS: *HR* GlipiZIDE XL (24 HR) 2.5 MG TABLET PO SCH (08:45)
[2017-03-30] MEDS: Cholecalciferol (D-3) 1,000 UNIT TABLET PO SCH (08:46)
[2017-03-30] MEDS: Furosemide 40 MG TABLET PO SCH (08:46)
[2017-03-30] MEDS: Insulin DETEMIR 100 UNIT/ML X5UNITS SQ SCH (08:46)
[2017-03-30] MEDS: Aspirin Enteric Coated 81 MG Tablet PO SCH (08:46)
[2017-03-30] MEDS: Loratadine 10 MG TABLET PO SCH (08:46)
[2017-03-30] MEDS ORDERED: Gabapentin 300 MG CAPSULE PO SCH (09:00)
[2017-03-30 11:50] VITALS: BP 133/75
== END 2017-03-30 15:45 | disposition home or self-care (01) ==
LOC: 3ANU 17:24 → EMEROO 17:24 → 3ANU 22:06
PROVIDERS: ADMIT Internal Medicine Endocrinology, Diabetes & Metabolism; ATTEND Internal Medicine

== ENCOUNTER 2017-06-02 12:13 | Inpatient (IN) ==
[2017-06-02] MEDS ORDERED: methylPREDNISolone 125 MG/2 ML VIAL IVP ONE (12:34)
[2017-06-02] MEDS ORDERED: Ipratropium/Albuterol Neb 3 ML IH ONE (12:34)
--- NOTE | 2017-06-02 12:40 | Emergency Department Note ---
Disposition Clinical Impression: Acute exacerbation of chronic obstructive airways disease Acute and chronic respiratory failure ([id number]) Qualifiers: Respiratory failure complication: hypoxia Qualified Code(s): J96.21 - Acute and chronic respiratory failure with hypoxia CHF (congestive heart failure) Qualifiers: Congestive heart failure type: unspecified congestive heart failure type Congestive heart failure chronicity: acute on chronic Qualified Code(s): I50.9 - Heart failure, unspecified Disposition: Admitted As Inpatient Condition: Fair Referrals: Emily Amaro MD [Primary Care Provider] - Forms: ED Satisfaction Letter General Adult HPI - General Chief complaint: ED Shortness of Breath/Dyspnea Stated complaint: sent from -possible pneumonia Time Seen by Provider: 06/02/17 12:28 Source: patient Limitations: no limitations Nursing Notes Reviewed: Yes Vital Signs Reviewed: Yes - History of Present Illness HPI Narrative: Chief complaint is I think I have pneumonia. History this is a 56-year-old gentleman he has had a long history of smoking quit about a year ago. History of COPD CHF and pneumonia. He states that he has been short of breath since the fair the summer. He denies any recent exposures to ill he has been coughing up yellow sputum. He is on oxygen 100% a time. Difficulty lying flat at night to sleep. Some edema in his ankles but not as but it has been in the past. Had blood work and chest x-ray done at urgent care yesterday and they called him today and told him he needed to come to the ER but did not tell him why. Patient denies being on antibiotics or steroids at this time. He is conversationally dyspneic to about 3 words. Past medical history reviewed, nurse's notes reviewed, allergies reviewed, med list reviewed. Pain Scale: 8 - Related Data Home Medications Medication Instructions Recorded Confirmed Aspirin [Adult Low Dose Aspirin EC] 81 mg PO DAILY 09/30/15 06/02/17 Cholecalciferol (D-3) [Vitamin D] 4,000 unit PO DAILY 09/30/15 06/02/17 Loratadine [Claritin] 10 mg PO DAILY 09/30/15 06/02/17 Insulin DETEMIR [Levemir] 30 unit SQ BID 06/02/17 06/02/17 Insulin LISPRO [HumaLOG] 15 units SQ TIDAC PRN 06/02/17 06/02/17 Insulin Regular, Human [Novolin R] 15 unit SQ TID PRN 06/02/17 06/02/17 metFORMIN [Glucophage] 1,000 mg PO BID 06/02/17 06/02/17 Previous Rx's Medication Instructions Recorded Albuterol Sulfate [Albuterol 2 puff IH Q4H PRN 30 Days 03/30/17 Inhaler] Budesonide/Formoterol 160/4.5 2 puff IH BIDR 30 Days 03/30/17 [Symbicort 160/4.5] Fenofibrate [Tricor] 162 mg PO DAILY #30 tablet 03/30/17 Furosemide [Lasix] 40 mg PO DAILY #30 tablet 03/30/17 Gabapentin [Neurontin] 300 mg PO TID #90 capsule 03/30/17 GlipiZIDE [Glipizide Xl] 5 mg PO DAILY #30 tab.er.24 03/30/17 Lisinopril [Zestril] 20 mg PO DAILY #30 tablet 03/30/17 Omeprazole [PriLOSEC] 40 mg PO DAILY #30 cap 03/30/17 Allergies Allergy/AdvReac Type Severity Reaction Status Date / Time ceftriaxone [From Rocephin] AdvReac Severe See Verified 06/02/17 12:20 Comments Review of Systems: Review of systems is positive for cough with productive sputum, wheeze, dyspnea. Denies chest pain. All systems ED: reviewed and negative except as stated. Past Medical History - Past Medical History Medical history: Reports: CHF, COPD, coronary artery disease, diabetes, hypertension, myocardial infarction, renal disease Surgical history: Reports: appendectomy, herniorrhaphy Psychiatric history: Reports: no psych history - Social History Smoking Status: Former smoker Smokeless Tobacco Status: No Alcohol use: Reports: none Drug use: Reports: none Physical Exam Temp 98.7, pulse is 91, respirations 26 and slightly labored, BP 1:15/78, pulse ox is 92% on 100%. He weighs 145 kg. General he is alert cooperative in moderate distress with conversational dyspnea to 3 words. HEENT is normocephalic PERRL airways midline there is no droolingor posterior pharynx is unremarkable supple neck no meningeal signs Cardiovascular is regular rate and rhythm without rubs or JVD. Heart sounds are difficult to hear due to the wheezing in his lungs. Lungs have decreased aeration the bases with wheezing in all 4 quadrants. He is coughing up yellow sputum. Abdomen is soft nonsurgical good bowel sounds no masses Extremities are present 4 good distal pulses Refill is brisk no calf tenderness he does have 1+ pitting edema in the ankles which she says is normal. Dermatologic skin is warm and dry no rash or petechia or jaundice he does have changes associated with age but none are acute. Neurologic crown nerves are intact he is alert person place and time GCS is 15. Moves all extremities. - General Limitations: no limitations General appearance: alert Course Vital Signs Temperature 98.7 F 06/02/17 12:21 Pulse Rate 91 06/02/17 12:21 Respiratory Rate 26 06/02/17 12:21 Blood Pressure 115/78 06/02/17 12:21 O2 Sat by Pulse Oximetry 92 06/02/17 12:21 Temperature 98.7 F 06/02/17 12:21 Pulse Rate 84 06/02/17 13:00 Respiratory Rate 18 06/02/17 13:00 Blood Pressure 124/70 06/02/17 13:00 O2 Sat by Pulse Oximetry 100 06/02/17 13:00 Oxygen Delivery Oxygen Delivery Aerosol Mask Medical Decision Making - [facility] Narrative Medical decision making narrative: We will order a cardiac workup to rule out CHF COPD chest x-ray breathing treatments and reassess. He most likely will need admission. He is in agreement with this plan. 1228 hrs.: Patient had an EKG performed which shows a sinus rhythm with a rate of 90. Had 3-4 PVCs. They appear to be unifocal. QRS is 84, QTc is 358, does have no signs of acute ischemia. Compared this with an EKG done earlier this year shows no changes except for rate. Chest X-Ray 06/02/17 12:34 IMPRESSION: Cardiomegaly and poulmonary vascular congestion, likely exaggerated by portable technique, compatible with congestive heart failure in the appropriate clinical setting. No airspace consolidation D/ / Juan Mcclendon MD / Juan Mcclendon MD Interpreting Provider: Juan Mcclendon MD 1330 hrs.: Patient had aspirin this morning. Given him Lasix and we will go ahead and admit him. He denies any chest pain. Impression is acute exacerbation of CHF, COPD, hypoxia, elevated troponin. Patient will be admitted. His critical care time exclusive separately billable procedures is 40 minutes. 1410 hrs.: Patient's accepted by hospitalist service. Patient's update in agreement with plan. He states he is feeling better after getting breathing treatments. - Lab Data Result diagrams: 06/02/17 12:45 06/02/17 12:45 Lab Results 06/02/17 06/02/17 06/02/17 Range/Units 12:45 12:45 12:45 WBC 9.9 (4.3-11.1) K/mcL RBC 4.85 (4.19-5.50) M/mcL Hgb 13.9 (12.9-16.9) g/dL Hct 47.1 (37.5-50.1) % MCV 97.1 (83.0-100.0) fL MCH 28.7 (28.0-33.3) pg MCHC 29.5 L (31.6-35.5) g/dL RDW 15.6 H (11.5-14.5) % Plt Count 194 (140-400) K/mcL MPV 11.4 (9.4-12.4) fL Immature Gran % 0.4 (0-4) % Seg Neutrophils % 66.8 % Lymphocytes % 23.0 % Monocytes % 7.8 % Eosinophils % 1.4 % Basophils % 0.6 % Neutrophils # 6.6 (1.6-8.9) K/mcL Lymphocytes # 2.3 (0.6-4.6) K/mcL Monocytes # 0.8 (0.0-1.3) K/mcL Eosinophils # 0.1 (0.0-0.6) K/mcL Basophils # 0.1 (0.0-0.2) K/mcL Nucleated RBCs/100 WBC 0.2 H (0) /100 WBC VBG pH (7.32-7.42) pH Units VBG pCO2 (41-51) mmHg VBG pO2 (25-40) mmHg VBG HCO3 (21-27) mEq/L Sodium 137 (136-145) mEq/L Potassium 4.4 (3.5-4.5) mEq/L Chloride 95 L (98-109) mEq/L Carbon Dioxide 33 H (19-29) mEq/L BUN 18 (8-26) mg/dL Creatinine 1.40 H (0.72-1.25) mg/dL Est GFR ( Amer) > 60 (> 60) Est GFR (Non-Af Amer) 52 L (> 60) BUN/Creatinine Ratio 13 (6-26) Glucose 121 H (70-99) mg/dL Calculated Osmolality 287 (280-300) Calcium 9.4 (8.6-10.8) mg/dL Troponin I 0.27 H* (0-0.03) ng/mL B-Natriuretic Peptide (0-100) pg/mL 06/02/17 06/02/17 Range/Units 12:45 12:45 WBC (4.3-11.1) K/mcL RBC (4.19-5.50) M/mcL Hgb (12.9-16.9) g/dL Hct (37.5-50.1) % MCV (83.0-100.0) fL MCH (28.0-33.3) pg MCHC (31.6-35.5) g/dL RDW (11.5-14.5) % Plt Count (140-400) K/mcL MPV (9.4-12.4) fL Immature Gran % (0-4) % Seg Neutrophils % % Lymphocytes % % Monocytes % % Eosinophils % % Basophils % % Neutrophils # (1.6-8.9) K/mcL Lymphocytes # (0.6-4.6) K/mcL Monocytes # (0.0-1.3) K/mcL Eosinophils # (0.0-0.6) K/mcL Basophils # (0.0-0.2) K/mcL Nucleated RBCs/100 WBC (0) /100 WBC VBG pH 7.37 (7.32-7.42) pH Units VBG pCO2 70 H (41-51) mmHg VBG pO2 55 H (25-40) mmHg VBG HCO3 40.5 H (21-27) mEq/L Sodium (136-145) mEq/L Potassium (3.5-4.5) mEq/L Chloride (98-109) mEq/L Carbon Dioxide (19-29) mEq/L BUN (8-26) mg/dL Creatinine (0.72-1.25) mg/dL Est GFR ( Amer) (> 60) Est GFR (Non-Af Amer) (> 60) BUN/Creatinine Ratio (6-26) Glucose (70-99) mg/dL Calculated Osmolality (280-300) Calcium (8.6-10.8) mg/dL Troponin I (0-0.03) ng/mL B-Natriuretic Peptide 1067 H (0-100) pg/mL
[2017-06-02 12:53] LABS: VBG HCO3 40.5 mEq/L (21-27); VBG PH 7.37 pH Units (7.32-7.42)
[2017-06-02 12:56] LABS: Basophils # 0.1 K/mcL (0.0-0.2); Basophils % 0.6 %; Eosinophils # 0.1 K/mcL (0.0-0.6); Eosinophils % 1.4 %; Hematocrit 47.1 % (37.5-50.1); Hemoglobin 13.9 g/dL (12.9-16.9); Immature Granulocytes % 0.4 % (0-4); Lymphocytes # 2.3 K/mcL (0.6-4.6); Mean Corpuscular HGB Conc 29.5 g/dL (31.6-35.5); Mean Corpuscular Hemoglobin 28.7 pg (28.0-33.3); Mean Corpuscular Volume 97.1 fL (83.0-100.0); Mean Platelet Volume 11.4 fL (9.4-12.4); Monocytes # 0.8 K/mcL (0.0-1.3); Monocytes % 7.8 %; Neutrophils # 6.6 K/mcL (1.6-8.9); Nucleated Red Blood Cells 0.2 /100 WBC (0); Platelet Count 194 K/mcL (140-400); Red Blood Count 4.85 M/mcL (4.19-5.50); Red Cell Distribution Width 15.6 % (11.5-14.5); Segmented Neutrophils % 66.8 %
[2017-06-02 13:12] LABS: BUN/Creatinine Ratio 13 (6-26); Blood Urea Nitrogen 18 mg/dL (8-26); Calcium 9.4 mg/dL (8.6-10.8); Carbon Dioxide 33 mEq/L (19-29); Chloride 95 mEq/L (98-109); Glucose 121 mg/dL (70-99); Osmolality,Calculated 287 (280-300); Potassium 4.4 mEq/L (3.5-4.5); Sodium 137 mEq/L (136-145); eGFR For African Americans > 60 (> 60); eGFR For Non-African Americans 52 (> 60)
[2017-06-02] MEDS ORDERED: Aspirin 81 MG TAB.CHEW PO STA (13:24)
[2017-06-02] MEDS ORDERED: Furosemide 20 MG/2 ML VIAL IVP ONE (13:24)
[2017-06-02] MEDS ORDERED: Naloxone 0.4 MG/ML INJ IVP PRN (18:38)
[2017-06-02] MEDS ORDERED: D5% in Water 1,000 ML IVC PRN (18:40)
[2017-06-02] MEDS ORDERED: *HR* Dextrose 50 % in Water (Syg) 50 ML SYRINGE IVP PRN (18:40)
[2017-06-02] MEDS ORDERED: Dextrose Gel 15 GM PO PRN ×2 (18:40)
[2017-06-02] MEDS ORDERED: Albuterol 2.5 MG/3 ML NEBULIZER IH PRN (19:24)
[2017-06-02] MEDS ORDERED: Furosemide 40 MG/4 ML VIAL IVP ONE (19:40)
[2017-06-02] MEDS ORDERED: levoFLOXacin 750 MG TABLET PO SCH (19:45)
--- NOTE | 2017-06-02 19:54 | Internal Med History&Physical ---
Date of Encounter: 06/03/17 Time of Encounter: 19:00 Assessment and Plan (1) Acute diastolic (congestive) heart failure Current visit: No Status: Acute 1 patient has a history of diastolic heart failure with last echo 06/2016 EF 55% . He is on home Lasix at 40 g daily. He has had increased shortness of breath weight gain orthopnea. BNP was 1067 chest x-ray indicative of CHF with vascular congestion. We will continue with Lasix we will give 40 mg IV twice a day 2 we will monitor her intake output daily weights 3 fluid restrictions 4 oxygen titrated to maintain SPO2 greater than 92% 5 continuous cardiac monitoring (2) Acute exacerbation of chronic obstructive airways disease Current visit: Yes Status: Acute 1 patient does have history of COPD he is oxygen dependent at home. He is a increasing shortness of breath as well as cough with changes in sputum production describing as green in color. We will continue with IV Solu-Medrol 60 mg every 6 hours-to taper 2 continue with bronchodilators 3 oxygen titrating maintain SPO2 greater than 92% 4 we will add Levaquin by mouth daily (3) Elevated troponin Current visit: Yes Status: Acute 1 troponin was 0.27 in the ER this could be related to demand ischemia secondary to CHF exacerbation as well patient has history CKD. He denies any chest pain. We will get a stat troponin if continues elevated we will initiate on heparin drip and consult cardiology 2 continue to trend troponin 3 continue with aspirin we will add low-dose beta cele 4 continuous cardiac monitoring (4) Diabetes mellitus Current visit: Yes Status: Chronic Accu-Cheks before meals at bedtime with sliding scale insulin we will continue with basal insulin 2 diabetic diet Qualifiers: Diabetes mellitus type: type 2 Diabetes mellitus complication status: with kidney complications Diabetes mellitus complication detail: with chronic kidney disease Diabetes mellitus ferry terminal agent insulin use: with ferry terminal agent use Chronic kidney disease stage: stage 3 (moderate) Qualified Code(s): E11.22 - Type 2 diabetes mellitus with diabetic chronic kidney disease; N18.3 - Chronic kidney disease, stage 3 (moderate); Z79.4 - superintendent container terminal (current) use of insulin (5) KATHY (obstructive sleep apnea) Current visit: No Status: Chronic 1 continue with CPAP at night (6) DVT prophylaxis Current visit: No Status: Acute (7) CAD (coronary artery disease) Current visit: No Status: Chronic 1 continue with aspirin and statin 80s we will add low-dose beta cele Qualifiers: Coronary Disease-Associated Artery/Lesion type: [place] artery [place] vs. transplanted heart: [place] heart Associated angina: angina presence unspecified Qualified Code(s): I25.10 - Atherosclerotic heart disease of [place] coronary artery without angina pectoris Internal Medicine - H&P: HPI Chief complaint: SOB Admitted From: Emergency Dept Plans for Post Hospital Care: Home History of present illness: Mr. Em is a 56 year old male with past medical history of CHF COPD oxygen dependent coronary disease kidney stage III diabetes hypertension [place] 2012 no stents KATHY. According to the patient he is at increased fatigue and has been sleeping more. He is oxygen dependent however over the past month he has had increasing shortness of breath over the past week his breath had worsened despite the use of oxygen and breathing treatments. He has been experiencing lower extremity swelling as well as weight gain. He has difficulty lying flat to sleep. He denies any fevers chills nausea vomiting or diarrhea. Denies any recent sick contacts. He does have a cough and notices a change in sputum production described as green. He presented to urgent care where he had blood work and chest x-ray completed yesterday. Today he was notified to go to the ER for evaluation however he does not know why. Upon arrival to the emergency room patient was dyspneic was unable to carry conversation. VBG pH 7.37 PCO2 70 PO2 55 bicarbonate was 40.5 there was no leukocytosis, and creatinine was 1.4 troponin 0.27 BNP was 1067 chest x-ray did reveal cardiomegaly and vascular congestion. He was given breathing treatments as well as IV steroids and Lasix. He has been admitted for further workup and evaluation. Presently patient does not appear to be in respiratory distress. His lung sounds are diminished throughout with faint expiratory wheezes. Heart sounds are regular S1 and S2 with no murmurs clicks, murmurs noted abdomen is obese soft tender to palpation. He does have slight pedal edema to lower extremity is bilaterally. SPO2 is 88-90% on 3 L presently. I reviewed this case with Dr. Cantu who agrees with plan Past Med Surg Social Fam HX - Past Medical History Medical history: CHF, COPD, coronary artery disease, diabetes, hypertension, myocardial infarction, renal disease Psychiatric history: no psych history - Past Surgical History Surgical History: appendectomy, herniorrhaphy - Social History Smoking Status: Former smoker Smokeless Tobacco Status: No Alcohol use: none Drug use: none - Family History Brother Family Member Ethnicity: Non- Living Status: Still Living Hx Family Cardiac Disorders: Yes (HTN) Hx Family Endocrine Disorder: Yes (DM) Sister Family Member Ethnicity: Non- Living Status: Hx Family Cancer: Yes (Lung) Hx Family Endocrine Disorder: Yes (DM) Daughter Family Member Ethnicity: Non- Living Status: Still Living Hx Family Cardiac Disorders: Yes (Hypertension) Mother Family Member Ethnicity: Non- Living Status: Hx Family Cardiac Disorders: Yes (HD, Stroke) Hx Family Endocrine Disorder: Yes (DM) Father Adopted: No Family Member Ethnicity: Non- Living Status: Hx Family Cardiac Disorders: Yes (HD, HTN) Hx Family Respiratory Disorders: Yes Hx Family Cancer: No Hx Family GI Disorders: No Hx Family Endocrine Disorder: No Hx Family Neuromuscular Disorders: No Hx Family Neurologic Disorders: No Hx Family HEENT Disorders: No Hx Family Autoimmune Disorders: No Internal Medicine - H&P: Meds Aspirin [Adult Low Dose Aspirin EC] 81 mg PO DAILY 09/30/15 [History] Cholecalciferol (D-3) [Vitamin D] 4,000 unit PO DAILY 09/30/15 [History] Loratadine [Claritin] 10 mg PO DAILY 09/30/15 [History] Albuterol Sulfate [Albuterol Inhaler] 2 puff IH Q4H PRN 30 Days 03/30/17 [Rx] Budesonide/Formoterol 160/4.5 [Symbicort 160/4.5] 2 puff IH BIDR 30 Days [Rx] Fenofibrate [Tricor] 162 mg PO DAILY #30 tablet 03/30/17 [Rx] Furosemide [Lasix] 40 mg PO DAILY #30 tablet 03/30/17 [Rx] Gabapentin [Neurontin] 300 mg PO TID #90 capsule 03/30/17 [Rx] GlipiZIDE [Glipizide Xl] 5 mg PO DAILY #30 tab.er.24 03/30/17 [Rx] Lisinopril [Zestril] 20 mg PO DAILY #30 tablet 03/30/17 [Rx] Omeprazole [PriLOSEC] 40 mg PO DAILY #30 cap 03/30/17 [Rx] Insulin DETEMIR [Levemir] 30 unit SQ BID 06/02/17 [History] Insulin LISPRO [HumaLOG] 15 units SQ TIDAC PRN 06/02/17 [History] Insulin Regular, Human [Novolin R] 15 unit SQ TID PRN 06/02/17 [History] metFORMIN [Glucophage] 1,000 mg PO BID 06/02/17 [History] 3 Allergy/AdvReac Type Severity Reaction Status Date / Time ceftriaxone [From Rocephin] AdvReac Severe See Verified 06/02/17 12:20 Comments All Systems PM: A 10-system review of systems was performed and is negative for pertinent findings except as documented above in the HPI. - Constitutional Constitutional: fatigue, weight gain - EENT Eyes: no change in vision, no discharge, no pain, no photophobia Nose, mouth and throat: no dysphagia, no nasal discharge, no neck pain, no sore throat - Cardiovascular Cardiovascular ROS IM: dyspnea, edema, orthopnea, no chest pain, no diaphoresis , no lightheadedness, no palpitations, no syncope - Respiratory Respiratory: cough, dyspnea, change in phlegm color, no wheezing, no excessive phlegm production - Gastrointestinal Gastrointestinal: no abdominal pain, no diarrhea, no hematemesis, no hematochezia, no melena, no nausea, no vomiting - Integumentary Integumentary IM: no rash, no unusual bruising - Neurological Neurological ROS: no confusion, no convulsions, no focal weakness, no numbness, no tingling, no tremor(s) - Hematologic/Lymphatic Hematologic/Lymphatic: no easy bruising - Constitutional Vitals: Temp Pulse Resp BP Pulse Ox 98.7 F 93 20 127/80 88 06/02/17 12:21 06/02/17 18:54 06/02/17 18:54 06/02/17 18:54 06/02/17 14:56 General appearance: Present: A&O X 3, answers questions appropriately - Head Head exam: Present: atraumatic, normocephalic - Eye Eye exam: Present: PERRL, conjuntiva pink, sclera anicteric Pupils: Present: PERRL - Neck Neck exam general surgery: Present: supple, trachea midline. Absent: lymphadenopathy - Respiratory Respiratory exam: Present: decreased breath sounds, wheezes. Absent: accessory muscle use, rales, rhonchi - Cardiovascular Cardiovascular exam: Present: RRR, +S1, +S2. Absent: diastolic murmur, gallop, rubs, systolic murmur - GI/Abdominal GI/Abdominal exam: Present: normal bowel sounds, soft, no peritoneal signs. Absent: distended, tenderness - Extremities Exam Extremities exam: Present: warm, radial pulses palpable and symmetrical. Absent : calf tenderness, cyanotic, pedal edema - Neurological Exam Neurological exam: Present: CN II-XII intact, oriented X3, no focal deficits. Absent: pronater drift, facial droop, speech deficit - Skin Skin exam: Present: dry, intact Internal Med - H&P Results - Labs CBC & Chem 7: 06/02/17 12:45 06/02/17 12:45 Labs: Cardiac Enzymes 06/02/17 Range/Units 18:58 Troponin I 0.21 H* (0-0.03) ng/mL - ABG Interpretation ABG results: VBG pH 7.37 PCO2 70 PO2 55 bicarbonate 40.5 - EKG Data EKG shows normal: sinus rhythm - EKG Data Prior EKG available for review: yes When compared to previous EKG: there is no significant change - Diagnostic Studies Other Images Additional comments: Chest X-Ray 06/02/17 12:34 IMPRESSION: Cardiomegaly and pulmonary vascular congestion, most likely exaggerated by portable technique, compatible with congestive heart failure in the appropriate clinical setting. No airspace consolidation. D/ / 06/02/2017 13:21:56 Juan Mcclendon MD / [facility] Interpreting Provider: Juan Mcclendon MD
[2017-06-02] MEDS: Gabapentin 300 MG CAPSULE PO SCH (20:30)
[2017-06-02] MEDS: Insulin LISPRO 300 UNITS/3 ML VIAL SQ SCH (20:51)
[2017-06-02] MEDS: Insulin DETEMIR 100 UNIT/ML X5UNITS SQ SCH (20:52)
[2017-06-02] MEDS ORDERED: Ipratropium/Albuterol Neb 3 ML IH SCH (22:00)
[2017-06-02] MEDS: Budesonide/Formoterol 160/4.5 MDI IH SCH (22:05)
[2017-06-02 22:30] LABS: ABG Base Excess 7.3 mEq/L (-2.0 to 3.0); ABG HCO3 38 mEq/L (21-27); ABG Oxygen Saturation 88 % (95-98); ABG PH 7.25 pH Units (7.32-7.45); ABG PO2 63 mmHg (85-104); ABG TCO2 40.9 mEq/L (20-26)
[2017-06-02 22:31] LABS: Blood Gas FiO2 36 %
[2017-06-02 22:34] LABS: ABG PCO2 87 mmHg (35-45)
[2017-06-02] MEDS: methylPREDNISolone 125 MG/2 ML VIAL IVP SCH (23:22)
[2017-06-02] MEDS: Ipratropium/Albuterol Neb 3 ML IH SCH (23:29)
[2017-06-03 01:14] LABS: ABG Base Excess 10.5 mEq/L (-2.0 to 3.0); ABG HCO3 42 mEq/L (21-27); ABG Oxygen Saturation 95 % (95-98); ABG PH 7.26 pH Units (7.32-7.45); ABG PO2 85 mmHg (85-104); ABG TCO2 45.1 mEq/L (20-26)
[2017-06-03 01:16] LABS: ABG PCO2 94 mmHg (35-45); Blood Gas FiO2 45 %
[2017-06-03 01:42] LABS: Hematocrit 44.6 % (37.5-50.1); Hemoglobin 13.4 g/dL (12.9-16.9); Immature Granulocytes % 0.3 % (0-4); Lymphocytes % 9.8 %; Mean Corpuscular Hemoglobin 29.7 pg (28.0-33.3); Mean Corpuscular Volume 98.9 fL (83.0-100.0); Monocytes % 1.3 %; Platelet Count 189 K/mcL (140-400); Red Blood Count 4.51 M/mcL (4.19-5.50); Red Cell Distribution Width 15.9 % (11.5-14.5); Segmented Neutrophils % 88.6 %
[2017-06-03 01:43] LABS: Lymphocytes # 0.6 K/mcL (0.6-4.6); Monocytes # 0.1 K/mcL (0.0-1.3); Neutrophils # 5.4 K/mcL (1.6-8.9); Nucleated Red Blood Cells 0.3 /100 WBC (0)
[2017-06-03 01:46] LABS: Calcium 8.8 mg/dL (8.6-10.8); Chol/HDL Ratio 3.5 (0-4.9); Magnesium 1.5 mg/dL (1.6-2.6)
[2017-06-03 01:51] LABS: Potassium 5.6 mEq/L (3.5-4.5)
[2017-06-03 02:57] LABS: ABG Base Excess 9.1 mEq/L (-2.0 to 3.0); ABG HCO3 40 mEq/L (21-27); ABG Oxygen Saturation 93 % (95-98); ABG PH 7.26 pH Units (7.32-7.45); ABG PO2 77 mmHg (85-104); ABG TCO2 43.2 mEq/L (20-26)
[2017-06-03 02:58] LABS: Blood Gas FiO2 45 %
[2017-06-03 03:00] LABS: ABG PCO2 90 mmHg (35-45)
[2017-06-03] MEDS: Ipratropium/Albuterol Neb 3 ML IH SCH ×6 (04:47→23:19)
[2017-06-03 05:30] LABS: ABG Base Excess 10.7 mEq/L (-2.0 to 3.0); ABG HCO3 42 mEq/L (21-27); ABG Oxygen Saturation 95 % (95-98); ABG PH 7.27 pH Units (7.32-7.45); ABG PO2 87 mmHg (85-104); ABG TCO2 44.6 mEq/L (20-26)
[2017-06-03 05:33] LABS: Blood Gas FiO2 50 %
[2017-06-03 05:34] LABS: ABG PCO2 91 mmHg (35-45)
[2017-06-03] MEDS: methylPREDNISolone 125 MG/2 ML VIAL IVP SCH ×3 (06:26→17:13)
[2017-06-03] MEDS: *HR* Enoxaparin 40 MG/0.4 ML SYRINGE SQ SCH (06:26)
--- NOTE | 2017-06-03 07:41 | Electrocardiograph Report ---
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
[2017-06-03] MEDS: Budesonide/Formoterol 160/4.5 MDI IH SCH ×2 (07:52→20:25)
[2017-06-03] MEDS ORDERED: Furosemide 40 MG/4 ML VIAL IVP SCH ×4 (08:00→17:00)
[2017-06-03] MEDS: Insulin DETEMIR 100 UNIT/ML X5UNITS SQ SCH ×2 (08:25→21:41)
[2017-06-03] MEDS: Aspirin Enteric Coated 81 MG Tablet PO SCH (08:25)
[2017-06-03] MEDS: Gabapentin 300 MG CAPSULE PO SCH ×3 (08:25→21:41)
[2017-06-03] MEDS: Loratadine 10 MG TABLET PO SCH (08:25)
[2017-06-03] MEDS: Insulin LISPRO 300 UNITS/3 ML VIAL SQ SCH ×4 (08:26→21:43)
[2017-06-03] MEDS ORDERED: Fenofibrate 54 MG TABLET PO SCH (09:00)
[2017-06-03] MEDS ORDERED: Levofloxacin 750 MG/150 ML 750 MG/150 ML BAG IVPB SCH (09:00)
[2017-06-03] MEDS ORDERED: Lisinopril 20 MG TABLET PO SCH (09:00)
[2017-06-03 15:32] LABS: ABG Base Excess 9.1 mEq/L (-2.0 to 3.0); ABG HCO3 38 mEq/L (21-27); ABG Oxygen Saturation 96 % (95-98); ABG PCO2 68 mmHg (35-45); ABG PH 7.35 pH Units (7.32-7.45); ABG PO2 88 mmHg (85-104); ABG TCO2 39.6 mEq/L (20-26)
[2017-06-03 15:35] LABS: Blood Gas FiO2 40 %
--- NOTE | 2017-06-03 16:46 | Pulmonology Consult Note ---
Date of Encounter: 06/03/17 Time of Encounter: 12:20 Assessment and Plan (1) Respiratory failure with hypoxia and hypercapnia Current Visit: No Status: Acute Patient has acute on chronic primarily hypercapnic respiratory failure and I adjusted his noninvasive ventilation with repeated ABGs much better and patient is more awake and alert. Respiratory therapy to contact his [employer] company regarding his current BiPAP setting. Since he is tolerating this current setting at this time to continue and perhaps follow-up as outpatient will give us more idea about his progress. Thank you for allowing me to participate in the care of this very nice gentleman and all his questions are answered. Qualifiers: Chronicity: acute on chronic Qualified Code(s): J96.21 - Acute and chronic respiratory failure with hypoxia; J96.22 - Acute and chronic respiratory failure with hypercapnia (2) COPD exacerbation Current Visit: No Status: Acute Patient is on appropriate treatment with systemic steroid and empiric antibiotics with the bronchodilators. Noninvasive ventilation. (3) Sleep apnea Current Visit: No Status: Chronic Patient is on BiPAP and follow-up as outpatient. Qualifiers: Sleep apnea type: unspecified type Qualified Code(s): G47.30 - Sleep apnea , unspecified (4) KATHY and COPD overlap syndrome Current Visit: No Status: Chronic Patient is on appropriate treatment for both diseases and weight loss is recommended History of Present Illness Consult date: 06/03/17 Requesting physician: Hesham Azul Reason for consult: dyspnea, COPD, hypoxemia Chief complaint: Shortness of breath History of present illness: This is very pleasant 56-year-old male who is known to me with multiple medical problems mainly cardio pulmonary disease is and he is on home BiPAP, however he has not been tolerating his machine due to high pressure and he has not been compliant with it because of that reason. He does not remember the pressure. Patient was having shortness of breath with mental status change and he was found to have hypercapnia. Patient also has history of obstructive sleep apnea. Patient has some cough and denies any significant sputum production or wheezing. Patient stated to his been tolerating current BiPAP setting much better and he was able to sleep and there is improvement in mental status. Patient denies any chest pain. Past Med Surg Social Fam HX - Past Medical History Medical history: CHF, COPD, coronary artery disease, diabetes, hypertension, myocardial infarction, renal disease Psychiatric history: no psych history - Past Surgical History Surgical History: appendectomy, herniorrhaphy - Social History Smoking Status: Former smoker Smokeless Tobacco Status: No Alcohol use: none Drug use: none - Family History Brother Family Member Ethnicity: Non- Living Status: Still Living Hx Family Cardiac Disorders: Yes (HTN) Hx Family Endocrine Disorder: Yes (DM) Sister Family Member Ethnicity: Non- Living Status: Hx Family Cancer: Yes (Lung) Hx Family Endocrine Disorder: Yes (DM) Daughter Family Member Ethnicity: Non- Living Status: Still Living Hx Family Cardiac Disorders: Yes (Hypertension) Mother Family Member Ethnicity: Non- Living Status: Hx Family Cardiac Disorders: Yes (HD, Stroke) Hx Family Endocrine Disorder: Yes (DM) Father Adopted: No Family Member Ethnicity: Non- Living Status: Hx Family Cardiac Disorders: Yes (HD, HTN) Hx Family Respiratory Disorders: Yes Hx Family Cancer: No Hx Family GI Disorders: No Hx Family Endocrine Disorder: No Hx Family Neuromuscular Disorders: No Hx Family Neurologic Disorders: No Hx Family HEENT Disorders: No Hx Family Autoimmune Disorders: No Medications and Allergies Aspirin [Adult Low Dose Aspirin EC] 81 mg PO DAILY 09/30/15 [History] Cholecalciferol (D-3) [Vitamin D] 4,000 unit PO DAILY 09/30/15 [History] Loratadine [Claritin] 10 mg PO DAILY 09/30/15 [History] Albuterol Sulfate [Albuterol Inhaler] 2 puff IH Q4H PRN 30 Days 03/30/17 [Rx] Budesonide/Formoterol 160/4.5 [Symbicort 160/4.5] 2 puff IH BIDR 30 Days [Rx] Fenofibrate [Tricor] 162 mg PO DAILY #30 tablet 03/30/17 [Rx] Furosemide [Lasix] 40 mg PO DAILY #30 tablet 03/30/17 [Rx] Gabapentin [Neurontin] 300 mg PO TID #90 capsule 03/30/17 [Rx] GlipiZIDE [Glipizide Xl] 5 mg PO DAILY #30 tab.er.24 03/30/17 [Rx] Lisinopril [Zestril] 20 mg PO DAILY #30 tablet 03/30/17 [Rx] Omeprazole [PriLOSEC] 40 mg PO DAILY #30 cap 03/30/17 [Rx] Insulin DETEMIR [Levemir] 30 unit SQ BID 06/02/17 [History] Insulin LISPRO [HumaLOG] 15 units SQ TIDAC PRN 06/02/17 [History] Insulin Regular, Human [Novolin R] 15 unit SQ TID PRN 06/02/17 [History] metFORMIN [Glucophage] 1,000 mg PO BID 06/02/17 [History] 3 Allergy/AdvReac Type Severity Reaction Status Date / Time ceftriaxone [From Rocephin] AdvReac Severe See Verified 06/02/17 12:20 Comments All Systems: A 10-system review of systems was performed and is negative for pertinent findings except as documented above in the HPI. Physical Examination Vital Signs: Vital Signs, Last 4 Hours Resp BP Pulse Ox 06/03/17 15:21 16 106/68 95 General appearance: no acute distress Eyes: nonicteric ENT: oropharynx moist Mallampati (class): 4 Neck: supple, no lymphadenopathy Effort: mildly labored Inspection: other (Obese) Auscultation: bilateral: diminished breath sounds Percussion: bilateral: not dull Cardiovascular: regular rate and rhythm Gastrointestinal: normoactive bowel sounds, soft Integumentary: normal Extremities: no cyanosis, edema normal mental status, non-focal exam mood appropriate Results - Laboratory Findings CBC and BMP: 06/03/17 01:25 06/03/17 01:25 ABG ABG pH 7.35 pH Units (7.32-7.45) 06/03/17 15:25 ABG pCO2 68 mmHg (35-45) H 06/03/17 15:25 ABG pO2 88 mmHg (85-104) 06/03/17 15:25 ABG O2 Saturation 96 % (95-98) 06/03/17 15:25 Abnormal lab findings: Abnormal lab results MCHC 30.0 g/dL (31.6-35.5) L 06/03/17 01:25 RDW 15.9 % (11.5-14.5) H 06/03/17 01:25 Nucleated RBCs/100 WBC 0.3 /100 WBC (0) H 06/03/17 01:25 ABG pCO2 68 mmHg (35-45) H 06/03/17 15:25 ABG HCO3 38 mEq/L (21-27) H 06/03/17 15:25 ABG Total CO2 39.6 mEq/L (20-26) H 06/03/17 15:25 ABG Base Excess 9.1 mEq/L (-2.0 to 3.0) H 06/03/17 15:25 VBG pCO2 70 mmHg (41-51) H 06/02/17 12:45 VBG pO2 55 mmHg (25-40) H 06/02/17 12:45 VBG HCO3 40.5 mEq/L (21-27) H 06/02/17 12:45 Sodium 135 mEq/L (136-145) L 06/03/17 01:25 Potassium 5.6 mEq/L (3.5-4.5) H D 06/03/17 01:25 Chloride 94 mEq/L (98-109) L 06/03/17 01:25 Carbon Dioxide 37 mEq/L (19-29) H 06/03/17 01:25 Creatinine 2.03 mg/dL (0.72-1.25) H 06/03/17 01:25 Est GFR ( Amer) 41 (> 60) L 06/03/17 01:25 Est GFR (Non-Af Amer) 34 (> 60) L 06/03/17 01:25 Glucose 278 mg/dL (70-99) H 06/03/17 01:25 POC Glucose 269 (58-89) H 06/02/17 20:50 Magnesium 1.5 mg/dL (1.6-2.6) L 06/03/17 01:25 Troponin I 0.16 ng/mL (0-0.03) H* 06/03/17 08:07 B-Natriuretic Peptide 1067 pg/mL (0-100) H 06/02/17 12:45 HDL Cholesterol 37 mg/dL (40-59) L 06/03/17 01:25 - Diagnostic Findings Chest x-ray: report reviewed, image reviewed - Clinical Findings Intake & Output: Intake & Output 06/03/17 06/03/17 06/03/17 07:59 15:59 23:59 Intake Total 720 / 720 Output Total 0 / 0 0 / 0 Balance 0 / 0 720 / 720 Consult Discharge Plan - Plan Referrals: Emily Amaro MD [Primary Care Provider] -
--- NOTE | 2017-06-03 17:46 | Internal Med Progress Note ---
Date of Encounter: 06/03/17 Time of Encounter: 11:00 - Assessment and plan (1) Demand ischemia Current Visit: Yes Status: Acute Assessment and plan: Troponin is trending down, flat, adynamic elevation, inconsistent with non-ST elevation HI. Likely secondary to demand ischemia caused by CHF exacerbation, respiratory failure and hypoxia. We will treat the CHF. Continue with aspirin and metoprolol and Lasix. Hold lisinopril due to worsening renal failure. (2) COPD exacerbation Current Visit: No Status: Acute Assessment and plan: We will treat this with IV steroids and inhaled bronchodilators. We will consult pulmonary service. (3) Obesities, morbid Current Visit: No Status: Chronic Assessment and plan: Outpatient weight loss regimen. (4) Acute diastolic (congestive) heart failure Current Visit: No Status: Acute Assessment and plan: Patient is more short of breath, has lower extremity edema. BNP increased to 1067 from 58 two months ago. Also suggested CHF exacerbation. Echocardiogram LVEF is 55% with mild diastolic dysfunction. IV Lasix, daily weights, strict I's and O's. Monitor kidney function closely. (5) Acute and chronic respiratory failure ([id number]) Current Visit: Yes Status: Acute Assessment and plan: IV steroids. Inhaled bronchodilators. BiPAP at night and when necessary. Consult pulmonology. Qualifiers: Respiratory failure complication: hypoxia and hypercapnia Qualified Code(s) : J96.21 - Acute and chronic respiratory failure with hypoxia (6) Obesity hypoventilation syndrome Current Visit: No Status: Chronic Assessment and plan: Nighttime BiPAP. - Subjective Interval history: Patient was sent to the hospital due to elevated troponin. Patient complained of shortness of breath. Currently reports that his shortness of breath has improved over the last 12 hours, denies chest pain and productive cough. Denies fevers and chills. - Constitutional Vitals: Temp Pulse Resp BP Pulse Ox 97.7 F 88 17 105/57 90 06/03/17 16:59 06/03/17 16:59 06/03/17 16:59 06/03/17 16:59 06/03/17 16:59 General appearance: Present: A&O X 3, answers questions appropriately - Respiratory Respiratory exam: Present: decreased breath sounds, prolonged expiratory phase, wheezes. Absent: accessory muscle use, rales, rhonchi - Cardiovascular Cardiovascular exam: Present: RRR, +S1, +S2. Absent: diastolic murmur, gallop, rubs, systolic murmur - GI/Abdominal GI/Abdominal exam: Present: normal bowel sounds, soft, no peritoneal signs. Absent: distended, tenderness - Extremities Exam Extremities exam: Present: pedal edema (2+ lower extremity pitting edema), warm , radial pulses palpable and symmetrical. Absent: calf tenderness, cyanotic - Skin Skin exam: Present: dry, intact Internal Medicine: Result - Labs CBC & Chem 7: 06/03/17 01:25 06/03/17 01:25 Labs: Short CBC 06/03/17 Range/Units 01:25 WBC 6.1 (4.3-11.1) K/mcL Hgb 13.4 (12.9-16.9) g/dL Hct 44.6 (37.5-50.1) % Plt Count 189 (140-400) K/mcL Neutrophils # 5.4 (1.6-8.9) K/mcL BMP 06/03/17 01:25 Sodium 135 L Potassium 5.6 H D Chloride 94 L Carbon Dioxide 37 H BUN 26 Creatinine 2.03 H Glucose 278 H Calcium 8.8 Cardiac Enzymes 06/02/17 06/03/17 06/03/17 Range/Units 19:52 01:25 08:07 Troponin I 0.19 H* 0.18 H* 0.16 H* (0-0.03) ng/mL - ABG Interpretation ABG results: ABG ABG pH 7.35 pH Units (7.32-7.45) 06/03/17 15:25 ABG pCO2 68 mmHg (35-45) H 06/03/17 15:25 ABG pO2 88 mmHg (85-104) 06/03/17 15:25 ABG O2 Saturation 96 % (95-98) 06/03/17 15:25 Consult Discharge Plan - Plan Referrals: Emily Amaro MD [Primary Care Provider] -
--- NOTE | 2017-06-03 18:38 | Nephrology Consult Note ---
Date of Encounter: 06/03/17 Time of Encounter: 18:15 Assessment and Plan (1) DAGO (acute kidney injury) Current Visit: No Status: Acute Nonoliguric DAGO on CKD stage III with hyperkalemia and metabolic alkalosis. Hx of COPD and KATHY so his met alkalosis is acute on chronic, perhaps the acute phase may represent a contraction aspect. On exam, he has diminished breath sound with 1+ pitting edema. Will add Albumin 25mg with his lasix dosing Would continue lasix tonight and then determine thereafter based upon UOP response and SCr changes. Hyperkalemia: trending up to 5.6. Will give Kayexalate 30mg po x1 tonight. His hyperglycemia, likely contributed to a shift of K+. Continue DM care as per primary Renal protective strategy: Hold Fenofibrate and ANGE. Dose Lovenox for reduced GFR. Thank you for consulting the [facility]. Will follow with you. (2) Hyperkalemia Current Visit: Yes Status: Acute See above (3) Metabolic alkalosis Current Visit: Yes Status: Acute See above (4) Acute exacerbation of chronic obstructive airways disease Current Visit: Yes Status: Acute As per primary (5) Acute diastolic (congestive) heart failure Current Visit: No Status: Acute See above (6) Hyponatremia Current Visit: No Status: Acute See above (7) Hypertension Current Visit: No Status: Chronic Will monitor Qualifiers: Hypertension type: essential hypertension Qualified Code(s): I10 - Essential (primary) hypertension (8) CKD (chronic kidney disease), stage III Current Visit: Yes Status: Acute CKD stage III at baseline. History of Present Illness - Reason for Consult Consult date: 06/03/17 Acute Kidney Injury, Chronic Kidney Disease, hyperkalemia Requesting physician: Hesham Azul - Chief Complaint DAGO on CKD stage III; Diuresis; Hyperkalemia - History of Present Illness Wilbert Em is a very pleasant 56 y/o WM with a pmh of obesity, COPD, KATHY, CKD stage III and et al who presented with worsened edema and concern for acute diastolic CHF. He is followed by my colleague Dr. Chau. He said his edema has been improving. Nephrology was consulted for help with his diuresis and his DAGO on CKD. He denied use of NSAIDs, N/V/D or dysuria. He did not affirm uremic symptoms. He uses a BiPAP nightly. He did not affirm CP. Past Med Surg Social Fam HX - Past Medical History Medical history: CHF, COPD, coronary artery disease, diabetes, hypertension, myocardial infarction, renal disease Psychiatric history: no psych history - Past Surgical History Surgical History: appendectomy, herniorrhaphy - Social History Smoking Status: Former smoker Smokeless Tobacco Status: No Alcohol use: none Drug use: none - Family History Brother Family Member Ethnicity: Non- Living Status: Still Living Hx Family Cardiac Disorders: Yes (HTN) Hx Family Endocrine Disorder: Yes (DM) Sister Family Member Ethnicity: Non- Living Status: Hx Family Cancer: Yes (Lung) Hx Family Endocrine Disorder: Yes (DM) Daughter Family Member Ethnicity: Non- Living Status: Still Living Hx Family Cardiac Disorders: Yes (Hypertension) Mother Family Member Ethnicity: Non- Living Status: Hx Family Cardiac Disorders: Yes (HD, Stroke) Hx Family Endocrine Disorder: Yes (DM) Father Adopted: No Family Member Ethnicity: Non- Living Status: Hx Family Cardiac Disorders: Yes (HD, HTN) Hx Family Respiratory Disorders: Yes Hx Family Cancer: No Hx Family GI Disorders: No Hx Family Endocrine Disorder: No Hx Family Neuromuscular Disorders: No Hx Family Neurologic Disorders: No Hx Family HEENT Disorders: No Hx Family Autoimmune Disorders: No Medications and Allergies Aspirin [Adult Low Dose Aspirin EC] 81 mg PO DAILY 09/30/15 [History] Cholecalciferol (D-3) [Vitamin D] 4,000 unit PO DAILY 09/30/15 [History] Loratadine [Claritin] 10 mg PO DAILY 09/30/15 [History] Albuterol Sulfate [Albuterol Inhaler] 2 puff IH Q4H PRN 30 Days 03/30/17 [Rx] Budesonide/Formoterol 160/4.5 [Symbicort 160/4.5] 2 puff IH BIDR 30 Days [Rx] Fenofibrate [Tricor] 162 mg PO DAILY #30 tablet 03/30/17 [Rx] Furosemide [Lasix] 40 mg PO DAILY #30 tablet 03/30/17 [Rx] Gabapentin [Neurontin] 300 mg PO TID #90 capsule 03/30/17 [Rx] GlipiZIDE [Glipizide Xl] 5 mg PO DAILY #30 tab.er.24 03/30/17 [Rx] Lisinopril [Zestril] 20 mg PO DAILY #30 tablet 03/30/17 [Rx] Omeprazole [PriLOSEC] 40 mg PO DAILY #30 cap 03/30/17 [Rx] Insulin DETEMIR [Levemir] 30 unit SQ BID 06/02/17 [History] Insulin LISPRO [HumaLOG] 15 units SQ TIDAC PRN 06/02/17 [History] Insulin Regular, Human [Novolin R] 15 unit SQ TID PRN 06/02/17 [History] metFORMIN [Glucophage] 1,000 mg PO BID 06/02/17 [History] 3 Allergy/AdvReac Type Severity Reaction Status Date / Time ceftriaxone [From Rocephin] AdvReac Severe See Verified 06/02/17 12:20 Comments Review of Systems All Systems: reviewed and no additional remarkable complaints except as stated Exam - Vital Signs Vital signs: Initial Vital Signs Temp Pulse Resp BP Pulse Ox 98.7 F 91 26 115/78 92 06/02/17 12:21 06/02/17 12:21 06/02/17 12:21 06/02/17 12:21 06/02/17 12:21 Vital Signs - Last 8 Hours Temp Pulse Resp BP Pulse Ox 06/03/17 16:59 97.7 F 88 17 105/57 90 06/03/17 15:21 16 106/68 95 06/03/17 11:14 16 95 06/03/17 11:02 98.3 F 70 18 106/68 Intake and Output 06/03/17 06/03/17 06/03/17 07:59 15:59 23:59 Intake Total 720 / 720 360 / 360 Output Total 0 / 0 0 / 0 500 / 500 Balance 0 / 0 720 / 720 -140 / -140 Intake: Oral 720 / 720 360 / 360 Output: Urine 0 / 0 0 / 0 500 / 500 Urethral (Mariee) 0 / 0 Other: Meal Lunch Dinner Percent of Meal Consumed 100% 100% Blood Glucose* 392 - General Appearance General appearance: well-developed, well-nourished, appears started age EENT: ATNC, PERRL, mucous membranes moist Neck: supple Respiratory: course breath sounds Cardiology: edema, regular rate, regular rhythm, normal S1, normal S2 Gastrointestinal: normoactive bowel sounds, no tenderness, no guarding Integumentary: no rash, warm and dry Neurologic: no focal deficit, no asterixis, alert and oriented x3 Musculoskeletal: no deformities, no erythema, no clubbing Psychiatric: mood/affect appropriate, cooperative Results - Lab Results 06/04/17 04:32 06/04/17 04:32 Most recent lab results ABG pH 7.35 pH Units (7.32-7.45) 06/03/17 15:25 ABG pCO2 68 mmHg (35-45) H 06/03/17 15:25 ABG pO2 88 mmHg (85-104) 06/03/17 15:25 ABG HCO3 38 mEq/L (21-27) H 06/03/17 15:25 ABG O2 Saturation 96 % (95-98) 06/03/17 15:25 Calcium 8.8 mg/dL (8.6-10.8) 06/03/17 01:25 Magnesium 1.5 mg/dL (1.6-2.6) L 06/03/17 01:25 I reviewed the above data dawson/info, progress notes, labs, meds, vitals, imaging Consult Discharge Plan - Plan Referrals: Emily Amaro MD [Primary Care Provider] - 06/18/17 1:45 pm
[2017-06-04] MEDS: methylPREDNISolone 125 MG/2 ML VIAL IVP SCH ×2 (01:00→05:43)
[2017-06-04] MEDS: Ipratropium/Albuterol Neb 3 ML IH SCH ×6 (04:09→23:26)
[2017-06-04 05:17] LABS: Basophils % 0.1 %; Hemoglobin 12.4 g/dL (12.9-16.9); Immature Granulocytes % 0.7 % (0-4); Immature Platelets 11.9 % (1.1-6.1); Lymphocytes % 5.6 %; Mean Corpuscular HGB Conc 29.5 g/dL (31.6-35.5); Mean Corpuscular Hemoglobin 28.6 pg (28.0-33.3); Mean Platelet Volume 11.7 fL (9.4-12.4); Monocytes # 0.5 K/mcL (0.0-1.3); Monocytes % 3.1 %; Neutrophils # 13.7 K/mcL (1.6-8.9); Platelet Count 193 K/mcL (140-400); Red Blood Count 4.33 M/mcL (4.19-5.50); Red Cell Distribution Width 15.4 % (11.5-14.5); Segmented Neutrophils % 90.5 %
[2017-06-04 05:24] LABS: Lymphocytes # 0.9 K/mcL (0.6-4.6)
[2017-06-04] MEDS: *HR* Enoxaparin 40 MG/0.4 ML SYRINGE SQ SCH (05:43)
[2017-06-04] MEDS: Albumin 25% 25gram/100mL 25 GM/100 ML IV.SOLN IVPB SCH ×2 (05:44→18:09)
[2017-06-04 05:59] LABS: Calcium 8.5 mg/dL (8.6-10.8); Magnesium 1.8 mg/dL (1.6-2.6); Potassium 4.7 mEq/L (3.5-4.5)
[2017-06-04 06:37] LABS: Uric Acid 6.8 mg/dL (3.5-7.2)
[2017-06-04] MEDS: Budesonide/Formoterol 160/4.5 MDI IH SCH ×2 (07:44→21:01)
[2017-06-04] MEDS: Insulin LISPRO 300 UNITS/3 ML VIAL SQ SCH ×4 (08:36→21:13)
[2017-06-04] MEDS: Aspirin Enteric Coated 81 MG Tablet PO SCH (08:39)
[2017-06-04] MEDS: Loratadine 10 MG TABLET PO SCH (08:39)
[2017-06-04] MEDS: Gabapentin 300 MG CAPSULE PO SCH ×3 (08:40→21:13)
[2017-06-04] MEDS: Insulin DETEMIR 100 UNIT/ML X5UNITS SQ SCH ×2 (08:41→21:13)
[2017-06-04] MEDS: Furosemide 20 MG/2 ML VIAL IVP SCH ×2 (08:44→16:36)
[2017-06-04] MEDS ORDERED: *HR* Enoxaparin 30 MG/0.3 ML SYRINGE SQ SCH (09:12)
--- NOTE | 2017-06-04 09:22 | Internal Med Progress Note ---
Date of Encounter: 06/04/17 Time of Encounter: 09:20 - Assessment and plan (1) Respiratory failure with hypoxia and hypercapnia Current Visit: No Status: Acute Assessment and plan: Pt is non compliance with BiPAP at home , also his settings need to be changed He seems to be tolerating well with current settings He did sleep well last night with current BiPAP settings will check ABG this morning Pt's regular Pulmonoogist Dr. Ruby on board need to contact his BiPAP provider to address the new settings Started tapering his steroids Duoneb and O2 He might have acute purulent bacterial bronchitis ..which might triggered his SOB will cont renally doses abx Levofloxacin Qualifiers: Chronicity: acute on chronic Qualified Code(s): J96.21 - Acute and chronic respiratory failure with hypoxia; J96.22 - Acute and chronic respiratory failure with hypercapnia (2) Acute diastolic (congestive) heart failure Current Visit: No Status: Acute Assessment and plan: Reviewed 2 D Echo Cont gentle diuresis with IV Lasix, daily weights, strict I's and O's. Monitor kidney function closely. (3) COPD exacerbation Current Visit: No Status: Acute Assessment and plan: Improving slowly start tapering IV steroids BiPAP 25/8 at QHS and as needed during day time cont Duoneb and O2 (4) Elevated troponin Current Visit: Yes Status: Acute Assessment and plan: due to demand ischemia with Resp failure + CHF exacerbation and DAGO Trended down Reviewed 2 D Echo - normal LVEF 55%, Mild LV diastolic dysfunction (5) DAGO (acute kidney injury) Current Visit: No Status: Acute Assessment and plan: DAGO with CKD-3 Due to cardiorenal syndrome Non oliguric had -1050 fluid balance y/d Nephro on board cont gentle IV diuresis (6) KATHY (obstructive sleep apnea) Current Visit: No Status: Chronic Assessment and plan: on BiPAP at home (7) Diabetes mellitus Current Visit: Yes Status: Chronic Assessment and plan: on ISS will check HbA1C Qualifiers: Diabetes mellitus type: type 2 Diabetes mellitus complication status: with kidney complications Diabetes mellitus complication detail: with chronic kidney disease Diabetes mellitus usp insulin use: with moth exterminator use Chronic kidney disease stage: stage 3 (moderate) Qualified Code(s): E11.22 - Type 2 diabetes mellitus with diabetic chronic kidney disease; N18.3 - Chronic kidney disease, stage 3 (moderate); Z79.4 - long-term (current) use of insulin (8) CKD (chronic kidney disease), stage III Current Visit: Yes Status: Acute (9) Obesity hypoventilation syndrome Current Visit: No Status: Chronic Assessment and plan: Nighttime BiPAP. (10) Hypertension Current Visit: No Status: Chronic Assessment and plan: stable with current home meds Qualifiers: Hypertension type: essential hypertension Qualified Code(s): I10 - Essential (primary) hypertension (11) Obesities, morbid Current Visit: No Status: Chronic Assessment and plan: counseled to loose weight (12) DVT prophylaxis Current Visit: No Status: Acute Assessment and plan: on Lovenox - Subjective Interval history: Mr. Em is a 56 year old male with past medical history of CHF COPD oxygen dependent coronary disease kidney stage III diabetes hypertension [place] 2013 no stents KATHY. According to the patient he is at increased fatigue and has been sleeping more. He is oxygen dependent however over the past month he has had increasing shortness of breath over the past week his breath had worsened despite the use of oxygen and breathing treatments. He has been experiencing lower extremity swelling as well as weight gain. He has difficulty lying flat to sleep. He denies any fevers chills nausea vomiting or diarrhea. Denies any recent sick contacts. He does have a cough and notices a change in sputum production described as green. He presented to urgent care where he had blood work and chest x-ray completed yesterday. Today he was notified to go to the ER for evaluation however he does not know why. Upon arrival to the emergency room patient was dyspneic was unable to carry conversation. VBG pH 7.37 PCO2 70 PO2 55 bicarbonate was 40.5 there was no leukocytosis, and creatinine was 1.4 troponin 0.27 BNP was 1067 chest x-ray did reveal cardiomegaly and vascular congestion. He was given breathing treatments as well as IV steroids and Lasix. He has been admitted for further workup and evaluation. Pt was placed on BiPAP initially and adjusted his BiPAP settings in last 2days. Today he is more alert, awake and O x3. Denied any CP. Still has some TSEARNS and SOB. No abd pain. Swelling in the legs also improving..Still has cough with expectoration - Constitutional Vitals: Temp Pulse Resp BP Pulse Ox 98.1 F 96 18 107/52 88 06/04/17 06:38 06/04/17 06:38 06/04/17 07:43 06/04/17 06:38 06/04/17 07:43 General appearance: Present: A&O X 3, answers questions appropriately - Head Head exam: Present: atraumatic, normal inspection - Respiratory Respiratory exam: Present: decreased breath sounds, respiratory distress (mild) , wheezes. Absent: rales, rhonchi - Cardiovascular Cardiovascular exam: Present: RRR, +S1, +S2. Absent: diastolic murmur, gallop, rubs, systolic murmur - GI/Abdominal GI/Abdominal exam: Present: distended, normal bowel sounds, soft. Absent: rebound, rigid, tenderness - Extremities Exam Extremities exam: Present: pedal edema (1+). Absent: calf tenderness, tenderness - Neurological Exam Neurological exam: Present: alert, oriented X3 - Psychiatric Psychiatric exam: Present: normal affect, normal mood Internal Medicine: Result - Labs CBC & Chem 7: 06/04/17 04:32 06/04/17 04:32 Labs: Short CBC 06/04/17 Range/Units 04:32 WBC 15.1 H D (4.3-11.1) K/mcL Hgb 12.4 L (12.9-16.9) g/dL Hct 42.0 (37.5-50.1) % Plt Count 193 (140-400) K/mcL Neutrophils # 13.7 H (1.6-8.9) K/mcL BMP 06/04/17 04:32 Sodium 134 L Potassium 4.7 H Chloride 90 L Carbon Dioxide 35 H BUN 40 H D Creatinine 1.98 H Glucose 335 H Calcium 8.5 L - ABG Interpretation ABG results: ABG ABG pH 7.35 pH Units (7.32-7.45) 06/03/17 15:25 ABG pCO2 68 mmHg (35-45) H 06/03/17 15:25 ABG pO2 88 mmHg (85-104) 06/03/17 15:25 ABG O2 Saturation 96 % (95-98) 06/03/17 15:25 Consult Discharge Plan - Plan Referrals: Emily Amaro MD [Primary Care Provider] -
[2017-06-04] MEDS ORDERED: Levofloxacin 750 MG/150 ML 750 MG/150 ML BAG IVPB SCH (10:00)
[2017-06-04 12:24] LABS: ABG Base Excess 10.9 mEq/L (-2.0 to 3.0); ABG HCO3 40 mEq/L (21-27); ABG Oxygen Saturation 94 % (95-98); ABG PH 7.32 pH Units (7.32-7.45); ABG PO2 75 mmHg (85-104); ABG TCO2 42.6 mEq/L (20-26)
[2017-06-04 12:25] LABS: ABG PCO2 78 mmHg (35-45)
[2017-06-04 12:26] LABS: Blood Gas Liter Flow 3 L/MIN
--- NOTE | 2017-06-04 12:39 | Nephrology Progress Note ---
Date of Encounter: 06/04/17 Time of Encounter: 09:45 - Assessment and Plan (1) DAGO (acute kidney injury) Current Visit: No Status: Acute Improving slightly. Edema was only 1+ pretibial and improved as per pt; plus his BNP is much improved: will decrease lasix to 20mg IV BID with Albumin 25gm. I suspect that by tomorrow, he may be able to resume oral diuretic dosing Metabolic alkalosis, multifactorial: He has known COPD and severe KATHY plus from the diuretics, serum CO2 dec to 35 from 37 and I expect this to improve again tomorrow, since I'm dec the lasix today. His primary sound mixer is Dr. Chau. (2) Hyperkalemia Current Visit: Yes Status: Acute Improving (3) Metabolic alkalosis Current Visit: Yes Status: Acute See above (4) Acute exacerbation of chronic obstructive airways disease Current Visit: Yes Status: Acute (5) Acute diastolic (congestive) heart failure Current Visit: No Status: Acute (6) Hyponatremia Current Visit: No Status: Acute Improved (7) Hypertension Current Visit: No Status: Chronic Qualifiers: Hypertension type: essential hypertension Qualified Code(s): I10 - Essential (primary) hypertension (8) CKD (chronic kidney disease), stage III Current Visit: Yes Status: Acute B/L CKD stage III. Follows with Dr. Chau. Subjective Principal diagnosis: DAGO on CKD with edema Interval history: Pt was seen/examined. His was present in the bedroom. He did not affirm N/V /D or uremic symptoms. He said that his LE edema is improving. Objective - Vital Signs Vital signs: Vital Signs Temp Pulse Resp BP Pulse Ox 06/04/17 12:10 18 94 06/04/17 07:43 18 88 06/04/17 06:38 98.1 F 96 18 107/52 86 06/04/17 04:59 98.1 F 83 18 106/65 97 06/04/17 04:09 16 94 06/04/17 00:01 98 F 82 18 100/62 97 06/03/17 23:19 22 89 06/03/17 20:20 19 89 06/03/17 19:32 98.1 F 93 17 103/67 90 06/03/17 16:59 97.7 F 88 17 105/57 90 06/03/17 15:21 16 106/68 95 Intake and Output 06/03/17 06/04/17 06/04/17 23:59 07:59 15:59 Intake Total 360 / 360 490 / 490 Output Total 500 / 500 1200 / 1200 Balance -140 / -140 -1200 / -1200 490 / 490 Intake: IV Fluids 250 / 250 Flexbumin 25 gm In 100 ml 100 / 100 @ 60 mls/hr IVPB Q12HR [facility] Rx#:[id number] Levaquin Premix 750mg/150 150 / 150 mL 750 mg In 150 ml @ 100 mls/hr IVPB DAILY [facility] Rx#:[id number] Oral 360 / 360 240 / 240 Output: Urine 500 / 500 1200 / 1200 Other: Meal Dinner Breakfast Percent of Meal Consumed 100% 100% Weight 144.7 kg Blood Glucose* 388 256 393 Patient Weight 06/04/17 23:59 Weight 144.7 kg - General Appearance Exam: General appearance: well-developed, well-nourished, appears started age EENT: ATNC, PERRL, mucous membranes moist Neck: supple Respiratory: course breath sounds Cardiology: edema, regular rate, regular rhythm, normal S1, normal S2 Gastrointestinal: normoactive bowel sounds, no tenderness, no guarding Integumentary: no rash, warm and dry Neurologic: no focal deficit, no asterixis, alert and oriented x3 Musculoskeletal: no deformities, no erythema, no clubbing Psychiatric: mood/affect appropriate, cooperative - Lab 06/04/17 04:32 06/04/17 04:32 Most recent lab results ABG pH 7.32 pH Units (7.32-7.45) 06/04/17 12:06 ABG pCO2 78 mmHg (35-45) H* 06/04/17 12:06 ABG pO2 75 mmHg (85-104) L 06/04/17 12:06 ABG HCO3 40 mEq/L (21-27) H 06/04/17 12:06 ABG O2 Saturation 94 % (95-98) L 06/04/17 12:06 Calcium 8.5 mg/dL (8.6-10.8) L 06/04/17 04:32 Magnesium 1.8 mg/dL (1.6-2.6) 06/04/17 04:32 Consult Discharge Plan - Plan Referrals: Emily Amaro MD [Primary Care Provider] - 06/18/17 1:45 pm
--- NOTE | 2017-06-04 16:50 | Pulmonology Progress Note ---
Date of Encounter: 06/04/17 Time of Encounter: 07:30 Assessment and Plan (1) Respiratory failure with hypoxia and hypercapnia Current Visit: No Status: Acute 06/04 patient is feeling much better, on current BiPAP setting and improvement in ABG. When patient is discharged home will plan to continue the same setting and then follow-up as outpatient. This is explained to the patient and understand the plan. Please call for any questions. Qualifiers: Chronicity: acute on chronic Qualified Code(s): J96.21 - Acute and chronic respiratory failure with hypoxia; J96.22 - Acute and chronic respiratory failure with hypercapnia (2) COPD exacerbation Current Visit: No Status: Acute Patient can be weaned off on systemic steroid and transitioned to oral for outpatient treatment. Systemic steroid and IV antibiotics can be transitioned to oral in the next 24 hours. (3) Sleep apnea Current Visit: No Status: Chronic Patient is on BiPAP. Qualifiers: Sleep apnea type: unspecified type Qualified Code(s): G47.30 - Sleep apnea , unspecified (4) KATHY and COPD overlap syndrome Current Visit: No Status: Chronic Subjective Principal diagnosis: Shortness of breath Interval history: 06/04 patient is feeling much better on current BiPAP setting and improvement in arterial blood gas. Objective PUL Vital signs: Last Vital Signs Temp 98.1 F 06/04/17 15:35 Pulse 75 06/04/17 15:35 Resp 18 06/04/17 15:46 BP 133/86 06/04/17 15:35 Pulse Ox 94 06/04/17 15:46 General appearance: no acute distress Eyes: nonicteric Mallampati (class): 4 Neck: supple Effort: normal Auscultation: bilateral: diminished breath sounds Percussion: bilateral: not dull Cardiovascular: regular rate and rhythm Gastrointestinal: normoactive bowel sounds Extremities: no cyanosis, edema normal mental status, non-focal exam mood appropriate Results - Laboratory Findings CBC and BMP: 06/04/17 04:32 06/04/17 04:32 ABG ABG pH 7.32 pH Units (7.32-7.45) 06/04/17 12:06 ABG pCO2 78 mmHg (35-45) H* 06/04/17 12:06 ABG pO2 75 mmHg (85-104) L 06/04/17 12:06 ABG O2 Saturation 94 % (95-98) L 06/04/17 12:06 Abnormal lab findings: Abnormal lab results WBC 15.1 K/mcL (4.3-11.1) H D 06/04/17 04:32 Hgb 12.4 g/dL (12.9-16.9) L 06/04/17 04:32 MCHC 29.5 g/dL (31.6-35.5) L 06/04/17 04:32 RDW 15.4 % (11.5-14.5) H 06/04/17 04:32 Neutrophils # 13.7 K/mcL (1.6-8.9) H 06/04/17 04:32 Nucleated RBCs/100 WBC 0.3 /100 WBC (0) H 06/03/17 01:25 Immature Plt Fraction 11.9 % (1.1-6.1) H 06/04/17 04:32 ABG pCO2 78 mmHg (35-45) H* 06/04/17 12:06 ABG pO2 75 mmHg (85-104) L 06/04/17 12:06 ABG HCO3 40 mEq/L (21-27) H 06/04/17 12:06 ABG Total CO2 42.6 mEq/L (20-26) H 06/04/17 12:06 ABG O2 Saturation 94 % (95-98) L 06/04/17 12:06 ABG Base Excess 10.9 mEq/L (-2.0 to 3.0) H 06/04/17 12:06 VBG pCO2 70 mmHg (41-51) H 06/02/17 12:45 VBG pO2 55 mmHg (25-40) H 06/02/17 12:45 VBG HCO3 40.5 mEq/L (21-27) H 06/02/17 12:45 Sodium 134 mEq/L (136-145) L 06/04/17 04:32 Potassium 4.7 mEq/L (3.5-4.5) H 06/04/17 04:32 Chloride 90 mEq/L (98-109) L 06/04/17 04:32 Carbon Dioxide 35 mEq/L (19-29) H 06/04/17 04:32 BUN 40 mg/dL (8-26) H D 06/04/17 04:32 Creatinine 1.98 mg/dL (0.72-1.25) H 06/04/17 04:32 Est GFR ( Amer) 42 (> 60) L 06/04/17 04:32 Est GFR (Non-Af Amer) 35 (> 60) L 06/04/17 04:32 Glucose 335 mg/dL (70-99) H 06/04/17 04:32 POC Glucose 392 (58-89) H 06/04/17 16:03 Calculated Osmolality 301 (280-300) H 06/04/17 04:32 Calcium 8.5 mg/dL (8.6-10.8) L 06/04/17 04:32 Troponin I 0.16 ng/mL (0-0.03) H* 06/03/17 08:07 B-Natriuretic Peptide 212 pg/mL (0-100) H 06/04/17 04:32 HDL Cholesterol 37 mg/dL (40-59) L 06/03/17 01:25 - Clinical Findings Intake & Output: Intake & Output 06/04/17 06/04/17 06/04/17 07:59 15:59 23:59 Intake Total 640 / 640 Output Total 1200 / 1200 Balance -1200 / -1200 640 / 640 Weight 144.7 kg Consult Discharge Plan - Plan Referrals: Emily Amaro MD [Primary Care Provider] - 06/18/17 1:45 pm
[2017-06-04] MEDS: MethylPREDNISolone 40 MG/ML VIAL IVP SCH (18:09)
[2017-06-04] MEDS ORDERED: Benzonatate 100 MG CAPSULE PO PRN (20:17)
[2017-06-05] MEDS: MethylPREDNISolone 40 MG/ML VIAL IVP SCH (05:16)
[2017-06-05] MEDS: Albumin 25% 25gram/100mL 25 GM/100 ML IV.SOLN IVPB SCH (05:16)
[2017-06-05] MEDS ORDERED: *HR* Enoxaparin 40 MG/0.4 ML SYRINGE SQ SCH (06:00)
[2017-06-05] MEDS: Ipratropium/Albuterol Neb 3 ML IH SCH ×3 (06:24→11:19)
[2017-06-05 06:30] LABS: Hematocrit 41.8 % (37.5-50.1); Hemoglobin 12.6 g/dL (12.9-16.9); Lymphocytes # 0.9 K/mcL (0.6-4.6); Mean Corpuscular HGB Conc 30.1 g/dL (31.6-35.5); Mean Corpuscular Hemoglobin 29.7 pg (28.0-33.3); Mean Corpuscular Volume 98.6 fL (83.0-100.0); Mean Platelet Volume 11.9 fL (9.4-12.4); Monocytes # 0.6 K/mcL (0.0-1.3); Monocytes % 4.3 %; Nucleated Red Blood Cells 0.2 /100 WBC (0); Platelet Count 183 K/mcL (140-400); Red Blood Count 4.24 M/mcL (4.19-5.50); Red Cell Distribution Width 15.4 % (11.5-14.5); Segmented Neutrophils % 87.7 %
[2017-06-05 06:40] LABS: Calcium 8.7 mg/dL (8.6-10.8); Magnesium 1.9 mg/dL (1.6-2.6); Potassium 4.5 mEq/L (3.5-4.5)
[2017-06-05 06:42] LABS: Neutrophils # 11.3 K/mcL (1.6-8.9)
[2017-06-05 07:43] VITALS: BP 144/67
[2017-06-05] MEDS: Insulin LISPRO 300 UNITS/3 ML VIAL SQ SCH (07:59)
[2017-06-05] MEDS: Budesonide/Formoterol 160/4.5 MDI IH SCH (08:30)
[2017-06-05 08:47] LABS: ABG Base Excess 12.2 mEq/L (-2.0 to 3.0); ABG HCO3 41 mEq/L (21-27); ABG Oxygen Saturation 92 % (95-98); ABG PH 7.36 pH Units (7.32-7.45); ABG PO2 67 mmHg (85-104); ABG TCO2 42.9 mEq/L (20-26)
[2017-06-05 08:49] LABS: ABG PCO2 72 mmHg (35-45); Blood Gas FiO2 32 %; Blood Gas Liter Flow 3 L/MIN
[2017-06-05] MEDS: Furosemide 20 MG/2 ML VIAL IVP SCH (08:56)
[2017-06-05] MEDS: Loratadine 10 MG TABLET PO SCH (09:06)
[2017-06-05] MEDS: Insulin DETEMIR 100 UNIT/ML X5UNITS SQ SCH (09:06)
[2017-06-05] MEDS: Aspirin Enteric Coated 81 MG Tablet PO SCH (09:06)
[2017-06-05] MEDS: Gabapentin 300 MG CAPSULE PO SCH (09:06)
--- NOTE | 2017-06-05 09:21 | Discharge Summary ---
Date of Encounter: 06/05/17 Time of Encounter: 09:16 - Discharge Diagnosis (1) Respiratory failure with hypoxia and hypercapnia Priority: Primary Status: Acute Qualifiers: Chronicity: acute on chronic Qualified Code(s): J96.21 - Acute and chronic respiratory failure with hypoxia; J96.22 - Acute and chronic respiratory failure with hypercapnia (2) Acute diastolic (congestive) heart failure Priority: Primary Status: Acute (3) COPD exacerbation Priority: Primary Status: Acute (4) Elevated troponin Priority: Primary Status: Acute (5) DAGO (acute kidney injury) Priority: Secondary Status: Acute (6) KATHY (obstructive sleep apnea) Priority: Secondary Status: Chronic (7) Diabetes mellitus Priority: Secondary Status: Chronic Qualifiers: Diabetes mellitus type: type 2 Diabetes mellitus complication status: with kidney complications Diabetes mellitus complication detail: with chronic kidney disease Diabetes mellitus chcf insulin use: with watermelon inspector use Chronic kidney disease stage: stage 3 (moderate) Qualified Code(s): E11.22 - Type 2 diabetes mellitus with diabetic chronic kidney disease; N18.3 - Chronic kidney disease, stage 3 (moderate); Z79.4 - watermelon inspector (current) use of insulin (8) CKD (chronic kidney disease), stage III Priority: Secondary Status: Acute (9) Obesity hypoventilation syndrome Priority: Secondary Status: Chronic (10) Hypertension Priority: Secondary Status: Chronic Qualifiers: Hypertension type: essential hypertension Qualified Code(s): I10 - Essential (primary) hypertension (11) Obesities, morbid Priority: Secondary Status: Chronic (12) DVT prophylaxis Priority: Secondary Status: Acute - Discharge Medications Prescriptions: levoFLOXacin [Levaquin] 500 mg PO DAILY #2 tablet Metoprolol [Lopressor] 12.5 mg PO BID 30 Days predniSONE [PredniSONE] 40 mg PO DAILY #10 tablet Home Medications: Aspirin [Adult Low Dose Aspirin EC] 81 mg PO DAILY 09/30/15 [History] Cholecalciferol (D-3) [Vitamin D] 4,000 unit PO DAILY 09/30/15 [History] Loratadine [Claritin] 10 mg PO DAILY 09/30/15 [History] Albuterol Sulfate [Albuterol Inhaler] 2 puff IH Q4H PRN 30 Days 03/30/17 [Rx] Budesonide/Formoterol 160/4.5 [Symbicort 160/4.5] 2 puff IH BIDR 30 Days [Rx] Fenofibrate [Tricor] 162 mg PO DAILY #30 tablet 03/30/17 [Rx] Furosemide [Lasix] 40 mg PO DAILY #30 tablet 03/30/17 [Rx] Gabapentin [Neurontin] 300 mg PO TID #90 capsule 03/30/17 [Rx] GlipiZIDE [Glipizide Xl] 5 mg PO DAILY #30 tab.er.24 03/30/17 [Rx] Lisinopril [Zestril] 20 mg PO DAILY #30 tablet 03/30/17 [Rx] Omeprazole [PriLOSEC] 40 mg PO DAILY #30 cap 03/30/17 [Rx] Insulin DETEMIR [Levemir] 30 unit SQ BID 06/02/17 [History] Insulin LISPRO [HumaLOG] 15 units SQ TIDAC PRN 06/02/17 [History] Metoprolol [Lopressor] 12.5 mg PO BID 30 Days 06/05/17 [Rx] levoFLOXacin [Levaquin] 500 mg PO DAILY #2 tablet 06/05/17 [Rx] predniSONE [PredniSONE] 40 mg PO DAILY #10 tablet 06/05/17 [Rx] Allergies/Adverse Reactions: 3 Allergy/AdvReac Type Severity Reaction Status Date / Time ceftriaxone [From Rocephin] AdvReac Severe See Verified 06/02/17 12:20 Comments Procedures/tests Complete & Pending: Procedures Performed prior 72 hours Category Date Time Status ECG 12 lead ECG [ECG] Routine Y 06/05/17 00:14 Completed Date of admission: 06/02/17 19:40 Primary care physician: Emily Amaro Consults: 06/03/17 12:33 Consult to Pulmonology [CONS] Routine Consulting Provider: [facility] Reason for Consult: copd exac, increasing co2 levels Call Completed: Yes 06/03/17 12:51 Consult to Nephrology [CONS] Routine Consulting Provider: Kidney Lexie/SARIAH/SOBIA/ALETHA Reason for Consult: elevated kidney function Call Completed: Yes - Patient Status Disposition: Home, Self-Care Condition: Good Overall status at discharge: patient is back to baseline - Discharge Instructions Follow Up With: Emily Amaro MD [Primary Care Provider] - 06/18/17 1:45 pm David Montgomery MD [Partnered Physician] - Additional Instructions: Please use your BIPAP with new settings Also use BiPAP as needed during day time for SOB ..and Continuous at bed time - Diet and Activity Activity: increase activity as tolerated Diet: low salt diet Hospital course: Mr. Em is a 56 year old male with past medical history of CHF COPD oxygen dependent coronary disease kidney stage III diabetes hypertension [place] 2012 no stents KATHY. According to the patient he is at increased fatigue and has been sleeping more. He is oxygen dependent however over the past month he has had increasing shortness of breath over the past week his breath had worsened despite the use of oxygen and breathing treatments. He has been experiencing lower extremity swelling as well as weight gain. He has difficulty lying flat to sleep. He denies any fevers chills nausea vomiting or diarrhea. Denies any recent sick contacts. He does have a cough and notices a change in sputum production described as green. He presented to urgent care where he had blood work and chest x-ray completed yesterday. Today he was notified to go to the ER for evaluation however he does not know why. Upon arrival to the emergency room patient was dyspneic was unable to carry conversation. VBG pH 7.37 PCO2 70 PO2 55 bicarbonate was 40.5 there was no leukocytosis, and creatinine was 1.4 troponin 0.27 BNP was 1067 chest x-ray did reveal cardiomegaly and vascular congestion. He was given breathing treatments as well as IV steroids and Lasix. He has been admitted for further workup and evaluation. Pt was admitted in the hospital and started him on high dose IV steroids, frequent duoneb and prophylactic abx. Pt was non compliance with BiPAP at home since he was not tolerating the home settings. Here we placed him on BiPAP initially and adjusted his BiPAP settings in last 2days. Pt was evaluated by rod finisher , who helped us to adjust his BiPAP settings. He has been doing well since y/d, with current BiPAP settings. He also happened to have acute diastolic CHF exacerbation so stared him on IV diuretics, his symptoms started improving now. He also happened to have DAGO with CKD-3 mostly cardiorenal syndrome, with IV diuresis, his Cr started improving, today his Cr at baseline @ 1.4. So will d/c him home today with new BiPAP settings and tapering PO steroids and PO abx for another 2 days. - Time Spent with Patient Total time spent providing and/or coordinating discharge services: Greater than 30 minutes (Spent 45 minutes on this patient's discharge summary due to complex medical problems and patient needed a lot of education regarding discharge instructions) - Constitutional Vitals: Temp Pulse Resp BP Pulse Ox 98.9 F 79 20 144/67 95 06/05/17 07:39 06/05/17 07:39 06/05/17 07:39 06/05/17 07:39 06/05/17 07:39 General appearance: Present: A&O X 3, answers questions appropriately - Head Head exam: Present: atraumatic, normal inspection - Respiratory Respiratory exam: Present: decreased breath sounds, wheezes (mild to moderare). Absent: rales, respiratory distress, rhonchi - Cardiovascular Cardiovascular exam: Present: RRR, +S1, +S2. Absent: diastolic murmur, gallop, rubs, systolic murmur - GI/Abdominal GI/Abdominal exam: Present: distended, normal bowel sounds, soft, no peritoneal signs. Absent: tenderness - Extremities Exam Extremities exam: Present: pedal edema (trace). Absent: calf tenderness, tenderness - Back Exam Back exam: Absent: CVA tenderness (L), CVA tenderness (R) - Neurological Exam Neurological exam: Present: alert, oriented X3 - Psychiatric Psychiatric exam: Present: normal affect, normal mood
[2017-06-05] MEDS ORDERED: Levofloxacin 750 MG/150 ML 750 MG/150 ML BAG IVPB SCH (10:00)
--- NOTE | 2017-06-05 15:53 | Pulmonology Progress Note ---
Date of Encounter: 06/05/17 Time of Encounter: 08:00 Assessment and Plan (1) Respiratory failure with hypoxia and hypercapnia Status: Acute 06/04 patient is feeling much better, on current BiPAP setting and improvement in ABG. When patient is discharged home will plan to continue the same setting and then follow-up as outpatient. This is explained to the patient and understand the plan. Please call for any questions. Qualifiers: Chronicity: acute on chronic Qualified Code(s): J96.21 - Acute and chronic respiratory failure with hypoxia; J96.22 - Acute and chronic respiratory failure with hypercapnia (2) COPD exacerbation Status: Acute Patient can be weaned off on systemic steroid and transitioned to oral for outpatient treatment. Systemic steroid and IV antibiotics can be transitioned to oral in the next 24 hours. (3) Sleep apnea Status: Chronic Patient is tolerating current pressure much better on his BiPAP and he will follow-up as outpatient. DME has notified. Qualifiers: Sleep apnea type: unspecified type Qualified Code(s): G47.30 - Sleep apnea , unspecified (4) KATHY and COPD overlap syndrome Status: Chronic Subjective Principal diagnosis: DAGO on CKD with edema Interval history: 06/04 patient is feeling much better on current BiPAP setting and improvement in arterial blood gas. 06/05 patient continued to improve Objective PUL Vital signs: Last Vital Signs Temp 98.9 F 06/05/17 07:39 Pulse 79 06/05/17 07:39 Resp 18 06/05/17 11:19 BP 144/67 06/05/17 07:39 Pulse Ox 96 06/05/17 11:19 General appearance: no acute distress Eyes: nonicteric Mallampati (class): 4 Neck: supple Effort: normal Auscultation: bilateral: diminished breath sounds Tactile fremitus: bilateral: normal Cardiovascular: regular rate and rhythm Gastrointestinal: normoactive bowel sounds Extremities: no cyanosis normal mental status, non-focal exam mood appropriate Results - Laboratory Findings CBC and BMP: 06/05/17 06:07 06/05/17 06:07 ABG ABG pH 7.36 pH Units (7.32-7.45) 06/05/17 08:22 ABG pCO2 72 mmHg (35-45) H* 06/05/17 08:22 ABG pO2 67 mmHg (85-104) L 06/05/17 08:22 ABG O2 Saturation 92 % (95-98) L 06/05/17 08:22 Abnormal lab findings: Abnormal lab results WBC 12.9 K/mcL (4.3-11.1) H 06/05/17 06:07 Hgb 12.6 g/dL (12.9-16.9) L 06/05/17 06:07 MCHC 30.1 g/dL (31.6-35.5) L 06/05/17 06:07 RDW 15.4 % (11.5-14.5) H 06/05/17 06:07 Neutrophils # 11.3 K/mcL (1.6-8.9) H 06/05/17 06:07 Nucleated RBCs/100 WBC 0.2 /100 WBC (0) H 06/05/17 06:07 Immature Plt Fraction 11.9 % (1.1-6.1) H 06/04/17 04:32 ABG pCO2 72 mmHg (35-45) H* 06/05/17 08:22 ABG pO2 67 mmHg (85-104) L 06/05/17 08:22 ABG HCO3 41 mEq/L (21-27) H 06/05/17 08:22 ABG Total CO2 42.9 mEq/L (20-26) H 06/05/17 08:22 ABG O2 Saturation 92 % (95-98) L 06/05/17 08:22 ABG Base Excess 12.2 mEq/L (-2.0 to 3.0) H 06/05/17 08:22 VBG pCO2 70 mmHg (41-51) H 06/02/17 12:45 VBG pO2 55 mmHg (25-40) H 06/02/17 12:45 VBG HCO3 40.5 mEq/L (21-27) H 06/02/17 12:45 Chloride 94 mEq/L (98-109) L 06/05/17 06:07 Carbon Dioxide 36 mEq/L (19-29) H 06/05/17 06:07 BUN 41 mg/dL (8-26) H 06/05/17 06:07 Creatinine 1.48 mg/dL (0.72-1.25) H 06/05/17 06:07 Est GFR ( Amer) 59 (> 60) L 06/05/17 06:07 Est GFR (Non-Af Amer) 49 (> 60) L 06/05/17 06:07 BUN/Creatinine Ratio 28 (6-26) H 06/05/17 06:07 Glucose 255 mg/dL (70-99) H 06/05/17 06:07 POC Glucose 230 (58-89) H 06/05/17 07:42 Calculated Osmolality 303 (280-300) H 06/05/17 06:07 Troponin I 0.16 ng/mL (0-0.03) H* 06/03/17 08:07 B-Natriuretic Peptide 212 pg/mL (0-100) H 06/04/17 04:32 HDL Cholesterol 37 mg/dL (40-59) L 06/03/17 01:25 - Clinical Findings Intake & Output: Intake & Output 06/04/17 06/05/17 06/05/17 23:59 07:59 15:59 Intake Total 840 / 840 0 / 0 240 / 240 Output Total 0 / 0 0 / 0 Balance 840 / 840 0 / 0 240 / 240 Weight 147.7 kg Consult Discharge Plan - Plan Instructions: Prednisone (By mouth), Levofloxacin (By mouth), BiPAP (GEN) Additional Instructions: Please use your BIPAP with new settings Also use BiPAP as needed during day time for SOB ..and Continuous at bed time Referrals: Emily Amaro MD [Primary Care Provider] - 06/18/17 1:45 pm David Montgomery MD [Partnered Physician] - Prescriptions: levoFLOXacin [Levaquin] 500 mg PO DAILY #2 tablet Metoprolol [Lopressor] 12.5 mg PO BID 30 Days predniSONE [PredniSONE] 40 mg PO DAILY #10 tablet
--- NOTE | 2017-06-09 06:01 | Electrocardiograph Report ---
[place] [id number] Test Date: 2017-06-05 Pat Name: Wilbert Em Department: 112 Room: 2A71 Gender: M Gaming Commissioner: OMID : [id number] Requested By: Harrison Downs Order Number: [id number] Reading MD: Dale Simpson MD Measurements Intervals Ozan Rate: 79 P: DC: 0 QRS: 44 QRSD: 109 T: 36 QT: 418 QTc: 453 Interpretive Statements SINUS RHYTHM WITH PVCS IN A BIGEMINAL PATTERN Poor R wave progression BASELINE ARTIFACT Electronically Signed On 06-09-2017 6:00:02 EDT by Dale Simpson MD
== END 2017-06-05 11:30 | disposition home or self-care (01) | DRG 291 ==
LOC: EMEROO 12:13 → 2ANU 12:13 → SUATTDRO 16:03 → 2ANU 16:44
PROVIDERS: ADMIT Internal Medicine; ATTEND Internal Medicine